=== PATIENT | female | born 1985 | race Caucasian/White ===

== ENCOUNTER 2016-05-21 10:25 | Emergency (ER) | payer OTHER ==
[2016-05-21 10:54] LABS: BASO % 0.5 % (0.0-1.0); EOS # 0.1 K/mm3 (0.0-0.50); EOS % 1.3 % (0.0-3.0); LARGE UNSTAINED CELL # 0.1 K/mm3 (0.0-0.4); LARGE UNSTAINED CELL % 1.7 % (0.0-4.0); LYMPH # 1.6 K/mm3 (1.5-6.5); LYMPH % 29.6 % (24.0-44.0); MEAN CORPUSCULAR HEMOGLOBIN 30.7 pg (27.0-33.0); MEAN CORPUSCULAR VOLUME 93.1 fl (80.0-96.0); MONO # 0.5 K/mm3 (0.0-0.8); MONO % 9.3 % (0.0-5.0); NEUTROPHILS # 3.1 K/mm3 (1.8-7.7); NEUTROPHILS % 57.7 % (36.0-66.0); PLATELET COUNT, AUTOMATED 287 k/mm3 (150-450); RED CELL DISTRIBUTION WIDTH 12.8 % (11.5-14.5); WHITE BLOOD COUNT 5.4 K/mm3 (4.0-10.0)
--- NOTE | 2016-05-21 11:08 | REP ---
Clinical: Epigastric and abdominal pain. Technique: Upright view of the chest with supine and upright views of the abdomen and pelvis. Findings: Frontal upright view of the chest demonstrates no acute cardiopulmonary process or free air below the diaphragm to suspect pneumoperitoneum. Supine and upright views of the abdomen and pelvis demonstrate nonspecific bowel gas pattern without obstruction or perforation. No organomegaly. No abnormal calcifications. Skeletal structures normal for age. Impression: Nonspecific bowel gas pattern. Signed by Diallo Calzada MD 05/21/2016 11:01 A
[2016-05-21 11:21] LABS: ALBUMIN 4.1 GM/DL (3.2-5.2); ALBUMIN/GLOBULIN RATIO 1.41 (1.00-1.93); ALKALINE PHOSPHATASE 80 U/L (45-117); ALT/SGPT 20 U/L (12-78); AMYLASE 22 U/L (25-115); ANION GAP 8 MEQ/L (8-16); AST/SGOT 10 U/L (15-37); BILIRUBIN,DIRECT < 0.1 MG/DL (0.0-0.2); BILIRUBIN,TOTAL 0.3 MG/DL (0.2-1.0); BLOOD UREA NITROGEN 10 MG/DL (7-18); CALCIUM LEVEL 8.7 MG/DL (8.5-10.1); CARBON DIOXIDE LEVEL 26 MEQ/L (21-32); CHLORIDE LEVEL 109 MEQ/L (98-107); CREATININE FOR GFR 0.79 MG/DL (0.55-1.02); GLOMERULAR FILTRATION RATE > 60.0 (>60); GLUCOSE, FASTING 95 MG/DL (70-105); POTASSIUM SERUM 4.4 MEQ/L (3.5-5.1); SODIUM LEVEL 143 MEQ/L (136-145)
[2016-05-21] MEDS ORDERED: GI COCKTAIL 50ML BTL(HYOSCYAMINE/MAALOX/LIDOCAINE VISCOUS)(1:3:1) As Ordered ONE (11:31)
--- NOTE | 2016-05-21 12:16 | REP ---
Clinical: Acute abdominal pain. Technique: Avila scale ultrasound using curved array transducer. Findings: The liver and pancreas are normal in contour, size, and echogenicity without focal hepatic or pancreatic lesions identified. The gallbladder is normal without gallstones, wall thickening or pericholecystic fluid. No biliary ductal dilatation is appreciated, and the common bile duct measures 2.3 mm diameter. The right kidney is normal in reniform shape without hydronephrosis and measures 11.2 x 7.0 x 4.1 cm. No ascites. Visualized portions of the abdominal aorta normal. Impression: Normal right upper quadrant and gallbladder abdominal ultrasound. Signed by Diallo Calzada MD 05/21/2016 12:08 P
--- NOTE | 2016-05-21 12:31 | EDDOCDS ---
Physician Documentation [facility] Name: Magalys Mcfarland Age: 30 yrs Sex: Female : 1985 Arrival Date: 05/21/2016 Time: 10:25 Bed PR Private MD: Frank Christian R. Disposition: 05/21/16 12:22 Discharged to Home/Self Care. Impression: Acute gastritis - NSAID induced. - Condition is Stable. - Discharge Instructions: Gastritis, Adult. - Prescriptions for Carafate 1 gram Oral Tablet - take 1 tablet by ORAL route 4 times per day take on an empty stomach, beginning on waking and last dose at bedtime; 28 tablet. - Medication Reconciliation, Local Pharmacy Hours form. - Follow up: Frank Christian; When: 1 week; Reason: Recheck today's complaints. Follow up: Emergency Department; When: As needed; Reason: Fever > 102F, Worsening of conditions, signs of bleeding. - Problem is new. - Symptoms have improved. - Notes: increase your omeprazole from once daily to twice daily for 7 days. call to arrange follow up appointment. Historical: - Allergies: No known drug Allergies; - Home Meds: 1. multivitamin Oral tab 1 tab daily 2. ferrous sulfate 325 mg (65 mg iron) Oral cpER daily 3. omeprazole 20 mg Oral cpDR 1 cap once daily - PMHx: none; - PSHx: Gastric Bypass; - Social history: Smoking status: Patient states was never smoker of tobacco. No barriers to communication noted, The patient speaks fluent Swazi, Speaks appropriately for age. - Family history: Not pertinent. - : The pt / caregiver states he / she is not on anticoagulants. Home medication list is obtained from the patient. - Exposure Risk Screening:: None identified. 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 3 in. (160.02 cm); 12:28 BP 127 / 76; Pulse 68; Resp 16; Temp 98.1(O); Pulse Ox 100% on R/A; Pain 0/10; mlb1 10:26 Body Mass Index 35.43 (90.72 kg, 160.02 cm) elp MDM: 10:42 NOTHING BY MOUTH+DIET ordered. EDMS 10:42 Amylase Ordered. EDMS 10:42 Basic Metabolic Profile Ordered. EDMS 10:42 CBC with Diff Ordered. EDMS 10:42 Lipase Ordered. EDMS 10:42 Liver Profile Ordered. EDMS 10:42 Abdomen, Flat\E\Upright,PA Chest Ordered. EDMS 10:50 Financial registration complete. mm15 11:05 [facility] Payment Agreement was scanned into [employer] and attached to record. mm15 11:16 CBC with Diff Reviewed. ar2 11:22 Amylase Reviewed. ar2 11:22 Basic Metabolic Profile Reviewed. ar2 11:22 Liver Profile Reviewed. ar2 11:22 Lipase Reviewed. ar2 11:28 GI Cocktail - (Alum-Mag Hydroxide-Simeth 30 ml, Lidocaine 10 ml, Hyoscyamine 10 ml) PO ar2 once; Pre-mixed 50mL unit dose ordered. 11:30 Gallbladder US Ordered. EDMS Administered Medications: 11:36 Drug: GI Cocktail - (Alum-Mag Hydroxide-Simeth Suspension 225 mg-200 mg-25 mg/5 mL 30 mcp ml, Lidocaine Liquid 2 % 10 ml, Hyoscyamine Liquid 10 ml) Route: PO; Signatures: Dispatcher [employer] EDVinod Tabares RN RN mlb1 Jessica IrvinRN RN ck1 Simon Salinas PA-C PACh[place] ar2 Vicki Alvarez mm15 Ela Hernandez RN [place] The chart was reviewed and I authenticate all verbal orders and agree with the evaluation and treatment provided.Attachments: 11:05 [facility] Payment Agreement mm15 MTDD
--- NOTE | 2016-05-21 12:31 | EDDOCDS ---
Nurse's Notes [facility] Name: Magalys Mcfarland Age: 30 yrs Sex: Female : 1985 Arrival Date: 05/21/2016 Time: 10:25 Bed PR2 / Private MD: Frank Christian R. Diagnosis: Acute gastritis-NSAID induced Presentation: 05/21 10:27 Presenting complaint: Patient states: "sever stomach pain " for a couple of hours. ck1 Denies NVD. Reports feeling lightheaded. Risk factors: the patient reports no vaginal bleeding. Adult Sepsis Screening: The patient does not have new or worsening altered mentation. Patient's respiratory rate is less than 22. Systolic blood pressure is greater than 100. Patient has a qSOFA score of 0- Negative Sepsis Screen. Suicide/Homicide risk assessment- the patient denies having any suicidal and/or homicidal ideations and does not present with any other emotional, behavioral or mental health complaints. Status: Patient is not a service operator or dependent. Transition of care: patient was not received from another setting of care. 10:27 Acuity: MARCY Level 3 ck1 10:27 Method Of Arrival: Walkin/Carried/Asstd ck1 Triage Assessment: 10:29 General: Appears uncomfortable, Behavior is appropriate for age, cooperative. Pain: ck1 Location: abdomen Pain At worst was 9 out of 10 on a pain scale. Is episodic. HIV screening NA for this visit Offered previously. GI: Denies diarrhea, nausea, vomiting. : Denies burning with urination, urinary frequency. Derm: Skin is pink, warm & dry. 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 multivitamin Oral tab 1 tab daily 2. ferrous sulfate 325 mg (65 mg iron) Oral cpER daily 3. omeprazole 20 mg Oral cpDR 1 cap once daily - PMHx: none; - PSHx: Gastric Bypass; - Social history: Smoking status: Patient states was never smoker of tobacco. No barriers to communication noted, The patient speaks fluent Cook Islander, Speaks appropriately for age. - Family history: Not pertinent. - : The pt / caregiver states he / she is not on anticoagulants. Home medication list is obtained from the patient. - Exposure Risk Screening:: None identified. Screenin:47 Screening information is obtained from the patient. Fall risk: No risks identified. ck1 Assistance ADL's: requires no assistance with activities of daily living. Abuse/DV Screen: The patient / caregiver reports he/she is: not in a situation that causes fear, pain or injury. Nutritional screening: No deficits noted. Advance Directives: Currently, there is no health care proxy. home support is adequate. Assessment: 10:47 General: Appears in no apparent distress, comfortable, Behavior is appropriate for age, ck1 cooperative. Pain: Location: abdomen Pain At worst was 8 out of 10 on a pain scale. GI: Abdomen is obese, Bowel sounds present X 4 quads. Abd is soft and non tender X 4 quads. Denies nausea, vomiting. : Denies burning with urination, urinary frequency, vaginal bleeding. Derm: Skin is pink, warm & dry. 12:28 General: Appears in no apparent distress, comfortable, Behavior is appropriate for age, mlb1 cooperative. Pain: Denies pain. Respiratory: No deficits noted. Derm: No deficits noted. 12:29 General: Appears in no apparent distress, comfortable, Behavior is appropriate for age, mlb1 cooperative. Vital Signs: 10:26 BP 137 / 89; Pulse 85; Resp 18; Temp 98.9; Pulse Ox 100% ; Weight 90.72 kg; Height 5 elp ft. 3 in. (160.02 cm); 12:28 BP 127 / 76; Pulse 68; Resp 16; Temp 98.1(O); Pulse Ox 100% on R/A; Pain 0/10; mlb1 10:26 Body Mass Index 35.43 (90.72 kg, 160.02 cm) [facility] Vitals: 10:26 Log In Time: May 21, 2016 at 10:24. [facility] ED Course: 10:26 Patient visited by Veronica Figueroa PCA. elp 10:26 Frank Christian is Private Physician. elp 10:26 Patient visited by Veronica Figueroa PCA. elp 10:26 Patient moved to Waiting elp 10:27 Patient moved to Pre RCE elp 10:28 Triage Initiated ck1 10:30 Patient moved to Triage 3 ck1 10:34 [facility] ar2 10:34 Patience Hidalgo MD is Attending Physician. ar2 10:34 Patient visited by Simon Salinas PA-C. ar2 10:46 Amylase Sent. nb2 10:46 Basic Metabolic Profile Sent. nb2 10:46 CBC with Diff Sent. nb2 10:46 Lipase Sent. nb2 10:46 Liver Profile Sent. nb2 10:47 Patient visited by Jessica Irvin,MEREDITH. ck1 10:47 Patient moved to TR3 ck1 10:47 The patient / caregiver is instructed regarding the plan of care and ED course. ck1 10:57 Patient moved to TR1 ck1 11:05 [facility] Payment Agreement was scanned into [employer] and attached to record. mm15 11:17 Patient moved to PR2 / 26 mlb1 11:37 Abdomen, Flat\\E\\Upright,PA Chest Returned. EDMS 11:46 Patient moved to Ultrasound eg2 11:57 Patient moved to PR2 / eg2 11:58 Patient visited by Jessica Irvin,MEREDITH. ck1 12:21 Frank Christian is Referral Physician. ar2 12:23 Gallbladder US Returned. EDMS 12:29 No IV's were initiated during this patient's visit. No procedures done that require mlb1 assistance. 12:30 Patient visited by Vinod Duarte RN. mlb1 Administered Medications: 11:36 Drug: GI Cocktail - (Alum-Mag Hydroxide-Simeth Suspension 225 mg-200 mg-25 mg/5 mL 30 mcp ml, Lidocaine Liquid 2 % 10 ml, Hyoscyamine Liquid 10 ml) Route: PO; Order Results: Lab Order: Amylase; SPEC'M 05/21/16 10:45 Test: AMYLASE; Value: 22; Range: 25-115; Abnormal: Below low normal; Units: U/L; Status: F Lab Order: Basic Metabolic Profile; SPEC'M 05/21/16 10:45 Test: GLUCOSE, FASTING; Value: 95; Range: 70-105; Units: MG/DL; Status: F Test: BLOOD UREA NITROGEN; Value: 10; Range: 7-18; Units: MG/DL; Status: F Test: CREATININE FOR GFR; Value: 0.79; Range: 0.55-1.02; Units: MG/DL; Status: F Test: GLOMERULAR FILTRATION RATE; Value: > 60.0; Range: >60; Status: F Test: SODIUM LEVEL; Value: 143; Range: 136-145; Units: MEQ/L; Status: F Test: POTASSIUM SERUM; Value: 4.4; Range: 3.5-5.1; Units: MEQ/L; Status: F Test: CHLORIDE LEVEL; Value: 109; Range: 98-107; Abnormal: Above high normal; Units: MEQ/L; Status: F Test: CARBON DIOXIDE LEVEL; Value: 26; Range: 21-32; Units: MEQ/L; Status: F Test: ANION GAP; Value: 8; Range: 8-16; Units: MEQ/L; Status: F Test: CALCIUM LEVEL; Value: 8.7; Range: 8.5-10.1; Units: MG/DL; Status: F Test Note: ; Units are mL/min/1.73 m2 Chronic Kidney Disease Staging per NKF: Stage I & II GFR >=60 Normal to Mildly Decreased Stage III GFR 30-59 Moderately Decreased Stage IV GFR 15-29 Severely Decreased Stage V GFR <15 Very Little GFR Left ESRD GFR <15 on METAL SLITTER Lab Order: CBC with Diff; SPEC'M 05/21/16 10:45 Test: WHITE BLOOD COUNT; Value: 5.4; Range: 4.0-10.0; Units: K/mm3; Status: F Test: RED BLOOD COUNT; Value: 4.52; Range: 4.00-5.40; Units: M/mm3; Status: F Test: HEMOGLOBIN; Value: 13.9; Range: 12.0-16.0; Units: g/dl; Status: F Test: HEMATOCRIT; Value: 42.1; Range: 36.0-47.0; Units: %; Status: F Test: MEAN CORPUSCULAR VOLUME; Value: 93.1; Range: 80.0-96.0; Units: fl; Status: F Test: MEAN CORPUSCULAR HEMOGLOBIN; Value: 30.7; Range: 27.0-33.0; Units: pg; Status: F Test: MEAN CORPUSCULAR HGB CONC; Value: 33.0; Range: 32.0-36.5; Units: g/dl; Status: F Test: RED CELL DISTRIBUTION WIDTH; Value: 12.8; Range: 11.5-14.5; Units: %; Status: F Test: PLATELET COUNT, AUTOMATED; Value: 287; Range: 150-450; Units: k/mm3; Status: F Test: NEUTROPHILS %; Value: 57.7; Range: 36.0-66.0; Units: %; Status: F Test: LYMPH %; Value: 29.6; Range: 24.0-44.0; Units: %; Status: F Test: MONO %; Value: 9.3; Range: 0.0-5.0; Abnormal: Above high normal; Units: %; Status: F Test: EOS %; Value: 1.3; Range: 0.0-3.0; Units: %; Status: F Test: BASO %; Value: 0.5; Range: 0.0-1.0; Units: %; Status: F Test: LARGE UNSTAINED CELL %; Value: 1.7; Range: 0.0-4.0; Units: %; Status: F Test: NEUTROPHILS #; Value: 3.1; Range: 1.8-7.7; Units: K/mm3; Status: F Test: LYMPH #; Value: 1.6; Range: 1.5-6.5; Units: K/mm3; Status: F Test: MONO #; Value: 0.5; Range: 0.0-0.8; Units: K/mm3; Status: F Test: EOS #; Value: 0.1; Range: 0.0-0.50; Units: K/mm3; Status: F Test: BASO #; Value: 0.0; Range: 0.0-0.2; Units: K/mm3; Status: F Test: LARGE UNSTAINED CELL #; Value: 0.1; Range: 0.0-0.4; Units: K/mm3; Status: F Lab Order: Lipase; SPEC'M 05/21/16 10:45 Test: LIPASE; Value: 122; Range: 73-393; Units: U/L; Status: F Lab Order: Liver Profile; SPEC'M 05/21/16 10:45 Test: AST/SGOT; Value: 10; Range: 15-37; Abnormal: Below low normal; Units: U/L; Status: F Test: ALT/SGPT; Value: 20; Range: 12-78; Units: U/L; Status: F Test: ALKALINE PHOSPHATASE; Value: 80; Range: 45-117; Units: U/L; Status: F Test: BILIRUBIN,TOTAL; Value: 0.3; Range: 0.2-1.0; Units: MG/DL; Status: F Test: BILIRUBIN,DIRECT; Value: < 0.1; Range: 0.0-0.2; Units: MG/DL; Status: F Test: TOTAL PROTEIN; Value: 7.0; Range: 6.4-8.2; Units: GM/DL; Status: F Test: ALBUMIN; Value: 4.1; Range: 3.2-5.2; Units: GM/DL; Status: F Test: ALBUMIN/GLOBULIN RATIO; Value: 1.41; Range: 1.00-1.93; Status: F Radiology Order: Abdomen, Flat\\E\\Upright,PA Chest Test: Abdomen, Flat\\E\\Upright,PA Chest REASON FOR EXAMINATION: epigastric pain; Clinical: Epigastric and abdominal pain.; ; Technique: Upright view of the chest with supine and upright views of the; abdomen and pelvis.; ; Findings: Frontal upright view of the chest demonstrates no acute; cardiopulmonary process or free air below the diaphragm to suspect; pneumoperitoneum. Supine and upright views of the abdomen and pelvis demonstrate; nonspecific bowel gas pattern without obstruction or perforation. No; organomegaly. No abnormal calcifications. Skeletal structures normal for age.; ; Impression:; Nonspecific bowel gas pattern.; ; ; Signed by; Diallo Calzada MD 05/21/2016 11:01 A; Radiology Order: Gallbladder US Test: Gallbladder US REASON FOR EXAMINATION: epigastric pain/colic; Clinical: Acute abdominal pain.; ; Technique: Avila scale ultrasound using curved array transducer.; ; Findings: The liver and pancreas are normal in contour, size, and echogenicity; without focal hepatic or pancreatic lesions identified. The gallbladder is; normal without gallstones, wall thickening or pericholecystic fluid. No biliary; ductal dilatation is appreciated, and the common bile duct measures 2.3 mm; diameter. The right kidney is normal in reniform shape without hydronephrosis; and measures 11.2 x 7.0 x 4.1 cm. No ascites. Visualized portions of the; abdominal aorta normal.; ; Impression:; Normal right upper quadrant and gallbladder abdominal ultrasound.; ; ; Signed by; Diallo Calzada MD 05/21/2016 12:08 P; Outcome: 12:22 Discharge ordered by Provider. ar2 12:29 Discharge Assessment: Patient awake, alert and oriented x 3. No cognitive and/or mlb1 functional deficits noted. Patient verbalized understanding of disposition instructions. patient administered narcotics - no. The following High Risk Discharge criteria are identified: None. Discharged to home ambulatory, with significant other. Condition: good. Discharge instructions given to patient, Instructed on discharge instructions, follow up and referral plans. Demonstrated understanding of instructions, medications, Pt was receptive of discharge instructions/ teaching. Prescriptions given X 1. Ultrasound Study completed. Property sent home with patient. 12:30 Patient left the ED. mlb1 Signatures: Dispatcher [employer] EDMS Ela Hernandez, RN RN Vinod Carrera RN RN mlb1 Jessica Irvin RN RN ck1 Veronica Quigley eg2 Simon Salinas PA-C PAChico ar2 Vicki Alvarez mm15 Veronica Figueroa PCA PCA elp Baart, Nicole nb2 [employer]
--- NOTE | 2016-05-23 13:30 | EDDOCDS ---
Physician Documentation [facility] Name: Magalys Mcfarland Age: 30 yrs Sex: Female : 1985 Arrival Date: 05/21/2016 Time: 10:25 Bed PR Private MD: Frank Christian R. Disposition: 05/21/16 12:22 Discharged to Home/Self Care. Impression: Acute gastritis - NSAID induced. - Condition is Stable. - Discharge Instructions: Gastritis, Adult. - Prescriptions for Carafate 1 gram Oral Tablet - take 1 tablet by ORAL route 4 times per day take on an empty stomach, beginning on waking and last dose at bedtime; 28 tablet. - Medication Reconciliation, Local Pharmacy Hours form. - Follow up: Frank Christian; When: 1 week; Reason: Recheck today's complaints. Follow up: Emergency Department; When: As needed; Reason: Fever > 102F, Worsening of conditions, signs of bleeding. - Problem is new. - Symptoms have improved. - Notes: increase your omeprazole from once daily to twice daily for 7 days. call to arrange follow up appointment. Historical: - Allergies: No known drug Allergies; - Home Meds: 1. multivitamin Oral tab 1 tab daily 2. ferrous sulfate 325 mg (65 mg iron) Oral cpER daily 3. omeprazole 20 mg Oral cpDR 1 cap once daily - PMHx: none; - PSHx: Gastric Bypass; - Social history: Smoking status: Patient states was never smoker of tobacco. No barriers to communication noted, The patient speaks fluent Beninese, Speaks appropriately for age. - Family history: Not pertinent. - : The pt / caregiver states he / she is not on anticoagulants. Home medication list is obtained from the patient. - Exposure Risk Screening:: None identified. 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 3 in. (160.02 cm); 12:28 BP 127 / 76; Pulse 68; Resp 16; Temp 98.1(O); Pulse Ox 100% on R/A; Pain 0/10; mlb1 10:26 Body Mass Index 35.43 (90.72 kg, 160.02 cm) elp MDM: 10:42 NOTHING BY MOUTH+DIET ordered. EDMS 10:42 Amylase Ordered. EDMS 10:42 Basic Metabolic Profile Ordered. EDMS 10:42 CBC with Diff Ordered. EDMS 10:42 Lipase Ordered. EDMS 10:42 Liver Profile Ordered. EDMS 10:42 Abdomen, Flat\E\Upright,PA Chest Ordered. EDMS 10:50 Financial registration complete. mm15 11:05 [facility] Payment Agreement was scanned into [employer] and attached to record. mm15 11:16 CBC with Diff Reviewed. ar2 11:22 Amylase Reviewed. ar2 11:22 Basic Metabolic Profile Reviewed. ar2 11:22 Liver Profile Reviewed. ar2 11:22 Lipase Reviewed. ar2 11:28 GI Cocktail - (Alum-Mag Hydroxide-Simeth 30 ml, Lidocaine 10 ml, Hyoscyamine 10 ml) PO ar2 once; Pre-mixed 50mL unit dose ordered. 11:30 Gallbladder US Ordered. EDWI 05/23 08:23 T-Sheet-- Draft Copy was scanned into [employer] and attached to record. lg 08:23 Radiology Report was scanned into [employer] and attached to record. lg Administered Medications: 05/21 11:36 Drug: GI Cocktail - (Alum-Mag Hydroxide-Simeth Suspension 225 mg-200 mg-25 mg/5 mL 30 mcp ml, Lidocaine Liquid 2 % 10 ml, Hyoscyamine Liquid 10 ml) Route: PO; Signatures: Dispatcher [employer] EDWI Franc Driscoll, Reg Reg lg Vinod Duarte RN RN mlb1 Jessica Irvin RN RN ck1 Simon Salinas PA-C PA-C ar2 Vicki Alvarez mm15 Ela Hernandez RN [facility] The chart was reviewed and I authenticate all verbal orders and agree with the evaluation and treatment provided.Attachments: 11:05 [facility] Payment Agreement mm15 05/23 08:23 T-Sheet-- Draft Copy lg Chart Complete MTDD
--- NOTE | 2016-05-23 13:30 | EDDOCDS ---
Nurse's Notes [facility] Name: Magalys Mcfarland Age: 30 yrs Sex: Female : 1985 Arrival Date: 05/21/2016 Time: 10:25 Bed PR2 / Private MD: Frank Christian R. Diagnosis: Acute gastritis-NSAID induced Presentation: 05/21 10:27 Presenting complaint: Patient states: "sever stomach pain " for a couple of hours. ck1 Denies NVD. Reports feeling lightheaded. Risk factors: the patient reports no vaginal bleeding. Adult Sepsis Screening: The patient does not have new or worsening altered mentation. Patient's respiratory rate is less than 22. Systolic blood pressure is greater than 100. Patient has a qSOFA score of 0- Negative Sepsis Screen. Suicide/Homicide risk assessment- the patient denies having any suicidal and/or homicidal ideations and does not present with any other emotional, behavioral or mental health complaints. Status: Patient is not a director of physiotherapy services or dependent. Transition of care: patient was not received from another setting of care. 10:27 Acuity: MARCY Level 3 ck1 10:27 Method Of Arrival: Walkin/Carried/Asstd ck1 Triage Assessment: 10:29 General: Appears uncomfortable, Behavior is appropriate for age, cooperative. Pain: ck1 Location: abdomen Pain At worst was 9 out of 10 on a pain scale. Is episodic. HIV screening NA for this visit Offered previously. GI: Denies diarrhea, nausea, vomiting. : Denies burning with urination, urinary frequency. Derm: Skin is pink, warm & dry. OTOLARYNGOLOGY NURSE: 10:30 LMP 05/16/2016 ck1 Historical: - Allergies: No known drug Allergies; - Home Meds: 1. multivitamin Oral tab 1 tab daily 2. ferrous sulfate 325 mg (65 mg iron) Oral cpER daily 3. omeprazole 20 mg Oral cpDR 1 cap once daily - PMHx: none; - PSHx: Gastric Bypass; - Social history: Smoking status: Patient states was never smoker of tobacco. No barriers to communication noted, The patient speaks fluent Qatari, Speaks appropriately for age. - Family history: Not pertinent. - : The pt / caregiver states he / she is not on anticoagulants. Home medication list is obtained from the patient. - Exposure Risk Screening:: None identified. Screenin:47 Screening information is obtained from the patient. Fall risk: No risks identified. ck1 Assistance ADL's: requires no assistance with activities of daily living. Abuse/DV Screen: The patient / caregiver reports he/she is: not in a situation that causes fear, pain or injury. Nutritional screening: No deficits noted. Advance Directives: Currently, there is no health care proxy. home support is adequate. Assessment: 10:47 General: Appears in no apparent distress, comfortable, Behavior is appropriate for age, ck1 cooperative. Pain: Location: abdomen Pain At worst was 8 out of 10 on a pain scale. GI: Abdomen is obese, Bowel sounds present X 4 quads. Abd is soft and non tender X 4 quads. Denies nausea, vomiting. : Denies burning with urination, urinary frequency, vaginal bleeding. Derm: Skin is pink, warm & dry. 12:28 General: Appears in no apparent distress, comfortable, Behavior is appropriate for age, mlb1 cooperative. Pain: Denies pain. Respiratory: No deficits noted. Derm: No deficits noted. 12:29 General: Appears in no apparent distress, comfortable, Behavior is appropriate for age, mlb1 cooperative. Vital Signs: 10:26 BP 137 / 89; Pulse 85; Resp 18; Temp 98.9; Pulse Ox 100% ; Weight 90.72 kg; Height 5 elp ft. 3 in. (160.02 cm); 12:28 BP 127 / 76; Pulse 68; Resp 16; Temp 98.1(O); Pulse Ox 100% on R/A; Pain 0/10; mlb1 10:26 Body Mass Index 35.43 (90.72 kg, 160.02 cm) [facility] Vitals: 10:26 Log In Time: May 21, 2016 at 10:24. [facility] ED Course: 10:26 Patient visited by Veronica Figueroa PCA. elp 10:26 Frank Christian is Private Physician. elp 10:26 Patient visited by Veronica Figueroa PCA. elp 10:26 Patient moved to Waiting elp 10:27 Patient moved to Pre RCE elp 10:28 Triage Initiated ck1 10:30 Patient moved to Triage 3 ck1 10:34 [facility] ar2 10:34 Patience Hidalgo MD is Attending Physician. ar2 10:34 Patient visited by Simon Salinas PA-C. ar2 10:46 Amylase Sent. nb2 10:46 Basic Metabolic Profile Sent. nb2 10:46 CBC with Diff Sent. nb2 10:46 Lipase Sent. nb2 10:46 Liver Profile Sent. nb2 10:47 Patient visited by Jessica Irvin,MEREDITH. ck1 10:47 Patient moved to TR3 ck1 10:47 The patient / caregiver is instructed regarding the plan of care and ED course. ck1 10:57 Patient moved to TR1 ck1 11:05 [facility] Payment Agreement was scanned into [employer] and attached to record. mm15 11:17 Patient moved to PR2 / mlb1 11:37 Abdomen, Flat\\E\\Upright,PA Chest Returned. EDMS 11:46 Patient moved to Ultrasound eg2 11:57 Patient moved to PR / eg2 11:58 Patient visited by Jessica Irvin,MEREDITH. ck1 12:21 Frank Christian is Referral Physician. ar2 12:23 Gallbladder US Returned. EDMS 12:29 No IV's were initiated during this patient's visit. No procedures done that require mlb1 assistance. 12:30 Patient visited by Vinod Duarte RN. mlb1 05/23 08:23 T-Sheet-- Draft Copy was scanned into [employer] and attached to record. lg 08:23 Radiology Report was scanned into [employer] and attached to record. lg Administered Medications: 05/21 11:36 Drug: GI Cocktail - (Alum-Mag Hydroxide-Simeth Suspension 225 mg-200 mg-25 mg/5 mL 30 mcp ml, Lidocaine Liquid 2 % 10 ml, Hyoscyamine Liquid 10 ml) Route: PO; Order Results: Lab Order: Amylase; SPEC'M 05/21/16 10:45 Test: AMYLASE; Value: 22; Range: 25-115; Abnormal: Below low normal; Units: U/L; Status: F Lab Order: Basic Metabolic Profile; SPEC'M 05/21/16 10:45 Test: GLUCOSE, FASTING; Value: 95; Range: 70-105; Units: MG/DL; Status: F Test: BLOOD UREA NITROGEN; Value: 10; Range: 7-18; Units: MG/DL; Status: F Test: CREATININE FOR GFR; Value: 0.79; Range: 0.55-1.02; Units: MG/DL; Status: F Test: GLOMERULAR FILTRATION RATE; Value: > 60.0; Range: >60; Status: F Test: SODIUM LEVEL; Value: 143; Range: 136-145; Units: MEQ/L; Status: F Test: POTASSIUM SERUM; Value: 4.4; Range: 3.5-5.1; Units: MEQ/L; Status: F Test: CHLORIDE LEVEL; Value: 109; Range: 98-107; Abnormal: Above high normal; Units: MEQ/L; Status: F Test: CARBON DIOXIDE LEVEL; Value: 26; Range: 21-32; Units: MEQ/L; Status: F Test: ANION GAP; Value: 8; Range: 8-16; Units: MEQ/L; Status: F Test: CALCIUM LEVEL; Value: 8.7; Range: 8.5-10.1; Units: MG/DL; Status: F Test Note: ; Units are mL/min/1.73 m2 Chronic Kidney Disease Staging per NKF: Stage I & II GFR >=60 Normal to Mildly Decreased Stage III GFR 30-59 Moderately Decreased Stage IV GFR 15-29 Severely Decreased Stage V GFR <15 Very Little GFR Left ESRD GFR <15 on CLINICAL TRIAL ASSOCIATE Lab Order: CBC with Diff; SPEC'M 05/21/16 10:45 Test: WHITE BLOOD COUNT; Value: 5.4; Range: 4.0-10.0; Units: K/mm3; Status: F Test: RED BLOOD COUNT; Value: 4.52; Range: 4.00-5.40; Units: M/mm3; Status: F Test: HEMOGLOBIN; Value: 13.9; Range: 12.0-16.0; Units: g/dl; Status: F Test: HEMATOCRIT; Value: 42.1; Range: 36.0-47.0; Units: %; Status: F Test: MEAN CORPUSCULAR VOLUME; Value: 93.1; Range: 80.0-96.0; Units: fl; Status: F Test: MEAN CORPUSCULAR HEMOGLOBIN; Value: 30.7; Range: 27.0-33.0; Units: pg; Status: F Test: MEAN CORPUSCULAR HGB CONC; Value: 33.0; Range: 32.0-36.5; Units: g/dl; Status: F Test: RED CELL DISTRIBUTION WIDTH; Value: 12.8; Range: 11.5-14.5; Units: %; Status: F Test: PLATELET COUNT, AUTOMATED; Value: 287; Range: 150-450; Units: k/mm3; Status: F Test: NEUTROPHILS %; Value: 57.7; Range: 36.0-66.0; Units: %; Status: F Test: LYMPH %; Value: 29.6; Range: 24.0-44.0; Units: %; Status: F Test: MONO %; Value: 9.3; Range: 0.0-5.0; Abnormal: Above high normal; Units: %; Status: F Test: EOS %; Value: 1.3; Range: 0.0-3.0; Units: %; Status: F Test: BASO %; Value: 0.5; Range: 0.0-1.0; Units: %; Status: F Test: LARGE UNSTAINED CELL %; Value: 1.7; Range: 0.0-4.0; Units: %; Status: F Test: NEUTROPHILS #; Value: 3.1; Range: 1.8-7.7; Units: K/mm3; Status: F Test: LYMPH #; Value: 1.6; Range: 1.5-6.5; Units: K/mm3; Status: F Test: MONO #; Value: 0.5; Range: 0.0-0.8; Units: K/mm3; Status: F Test: EOS #; Value: 0.1; Range: 0.0-0.50; Units: K/mm3; Status: F Test: BASO #; Value: 0.0; Range: 0.0-0.2; Units: K/mm3; Status: F Test: LARGE UNSTAINED CELL #; Value: 0.1; Range: 0.0-0.4; Units: K/mm3; Status: F Lab Order: Lipase; SPEC'M 05/21/16 10:45 Test: LIPASE; Value: 122; Range: 73-393; Units: U/L; Status: F Lab Order: Liver Profile; SPEC'M 02/22/17 10:45 Test: AST/SGOT; Value: 10; Range: 15-37; Abnormal: Below low normal; Units: U/L; Status: F Test: ALT/SGPT; Value: 20; Range: 12-78; Units: U/L; Status: F Test: ALKALINE PHOSPHATASE; Value: 80; Range: 45-117; Units: U/L; Status: F Test: BILIRUBIN,TOTAL; Value: 0.3; Range: 0.2-1.0; Units: MG/DL; Status: F Test: BILIRUBIN,DIRECT; Value: < 0.1; Range: 0.0-0.2; Units: MG/DL; Status: F Test: TOTAL PROTEIN; Value: 7.0; Range: 6.4-8.2; Units: GM/DL; Status: F Test: ALBUMIN; Value: 4.1; Range: 3.2-5.2; Units: GM/DL; Status: F Test: ALBUMIN/GLOBULIN RATIO; Value: 1.41; Range: 1.00-1.93; Status: F Radiology Order: Abdomen, Flat\\E\\Upright,PA Chest Test: Abdomen, Flat\\E\\Upright,PA Chest REASON FOR EXAMINATION: epigastric pain; Clinical: Epigastric and abdominal pain.; ; Technique: Upright view of the chest with supine and upright views of the; abdomen and pelvis.; ; Findings: Frontal upright view of the chest demonstrates no acute; cardiopulmonary process or free air below the diaphragm to suspect; pneumoperitoneum. Supine and upright views of the abdomen and pelvis demonstrate; nonspecific bowel gas pattern without obstruction or perforation. No; organomegaly. No abnormal calcifications. Skeletal structures normal for age.; ; Impression:; Nonspecific bowel gas pattern.; ; ; Signed by; Diallo Calzada MD 05/21/2016 11:01 A; Radiology Order: Gallbladder US Test: Gallbladder US REASON FOR EXAMINATION: epigastric pain/colic; Clinical: Acute abdominal pain.; ; Technique: Avila scale ultrasound using curved array transducer.; ; Findings: The liver and pancreas are normal in contour, size, and echogenicity; without focal hepatic or pancreatic lesions identified. The gallbladder is; normal without gallstones, wall thickening or pericholecystic fluid. No biliary; ductal dilatation is appreciated, and the common bile duct measures 2.3 mm; diameter. The right kidney is normal in reniform shape without hydronephrosis; and measures 11.2 x 7.0 x 4.1 cm. No ascites. Visualized portions of the; abdominal aorta normal.; ; Impression:; Normal right upper quadrant and gallbladder abdominal ultrasound.; ; ; Signed by; Diallo Calzada MD 05/21/2016 12:08 P; Outcome: 12:22 Discharge ordered by Provider. ar2 12:29 Discharge Assessment: Patient awake, alert and oriented x 3. No cognitive and/or mlb1 functional deficits noted. Patient verbalized understanding of disposition instructions. patient administered narcotics - no. The following High Risk Discharge criteria are identified: None. Discharged to home ambulatory, with significant other. Condition: good. Discharge instructions given to patient, Instructed on discharge instructions, follow up and referral plans. Demonstrated understanding of instructions, medications, Pt was receptive of discharge instructions/ teaching. Prescriptions given X 1. Ultrasound Study completed. Property sent home with patient. 12:30 Patient left the ED. mlb1 Signatures: Dispatcher [employer] EDMS Ela Hernandez, RN RN Franc Stewart Reg Reg lg Barney, Michael B RN RN mlb1 Jessica Irvin RN RN ck1 Veronica Quigley eg2 Simon Salinas PA-C PACh[place] ar2 Vicki Alvarez mm15 Veronica Figueroa PCA PCA elp Baart, Nicole nb2 Chart Complete MTDD
--- NOTE | 2016-05-23 13:30 | EDDOCDS ---
Physician Documentation [facility] Name: Magalys Mcfarland Age: 30 yrs Sex: Female : 1985 Arrival Date: 05/21/2016 Time: 10:25 Bed PR Private MD: Frank Christian R. Disposition: 05/21/16 12:22 Discharged to Home/Self Care. Impression: Acute gastritis - NSAID induced. - Condition is Stable. - Discharge Instructions: Gastritis, Adult. - Prescriptions for Carafate 1 gram Oral Tablet - take 1 tablet by ORAL route 4 times per day take on an empty stomach, beginning on waking and last dose at bedtime; 28 tablet. - Medication Reconciliation, Local Pharmacy Hours form. - Follow up: Frank Christian; When: 1 week; Reason: Recheck today's complaints. Follow up: Emergency Department; When: As needed; Reason: Fever > 102F, Worsening of conditions, signs of bleeding. - Problem is new. - Symptoms have improved. - Notes: increase your omeprazole from once daily to twice daily for 7 days. call to arrange follow up appointment. Historical: - Allergies: No known drug Allergies; - Home Meds: 1. multivitamin Oral tab 1 tab daily 2. ferrous sulfate 325 mg (65 mg iron) Oral cpER daily 3. omeprazole 20 mg Oral cpDR 1 cap once daily - PMHx: none; - PSHx: Gastric Bypass; - Social history: Smoking status: Patient states was never smoker of tobacco. No barriers to communication noted, The patient speaks fluent Senegalese, Speaks appropriately for age. - Family history: Not pertinent. - : The pt / caregiver states he / she is not on anticoagulants. Home medication list is obtained from the patient. - Exposure Risk Screening:: None identified. DIRECTOR OF PULMONARY UNIT: 05/21 10:30 LMP 05/16/2016 ck1 Vital Signs: 10:26 BP 137 / 89; Pulse 85; Resp 18; Temp 98.9; Pulse Ox 100% ; Weight 90.72 kg / 200 lbs; elp Height 5 ft. 3 in. (160.02 cm); 12:28 BP 127 / 76; Pulse 68; Resp 16; Temp 98.1(O); Pulse Ox 100% on R/A; Pain 0/10; mlb1 10:26 Body Mass Index 35.43 (90.72 kg, 160.02 cm) elp MDM: 10:42 NOTHING BY MOUTH+DIET ordered. EDMS 10:42 Amylase Ordered. EDMS 10:42 Basic Metabolic Profile Ordered. EDMS 10:42 CBC with Diff Ordered. EDMS 10:42 Lipase Ordered. EDMS 10:42 Liver Profile Ordered. EDMS 10:42 Abdomen, Flat\E\Upright,PA Chest Ordered. EDMS 10:50 Financial registration complete. mm15 11:05 [facility] Payment Agreement was scanned into [employer] and attached to record. mm15 11:16 CBC with Diff Reviewed. ar2 11:22 Amylase Reviewed. ar2 11:22 Basic Metabolic Profile Reviewed. ar2 11:22 Liver Profile Reviewed. ar2 11:22 Lipase Reviewed. ar2 11:28 GI Cocktail - (Alum-Mag Hydroxide-Simeth 30 ml, Lidocaine 10 ml, Hyoscyamine 10 ml) PO ar2 once; Pre-mixed 50mL unit dose ordered. 11:30 Gallbladder US Ordered. EDWY 05/23 08:23 T-Sheet-- Draft Copy was scanned into [employer] and attached to record. lg 08:23 Radiology Report was scanned into [employer] and attached to record. lg Administered Medications: 05/21 11:36 Drug: GI Cocktail - (Alum-Mag Hydroxide-Simeth Suspension 225 mg-200 mg-25 mg/5 mL 30 mcp ml, Lidocaine Liquid 2 % 10 ml, Hyoscyamine Liquid 10 ml) Route: PO; Signatures: Dispatcher [employer] EDWY Franc Driscoll, Reg Reg lg Vinod Duarte RN RN mlb1 Jessica Irvin RN RN ck1 Simon Salinas PA-C PA-C ar2 Vicki Alvarez mm15 Ela Hernandez RN [facility] The chart was reviewed and I authenticate all verbal orders and agree with the evaluation and treatment provided.Attachments: 11:05 [facility] Payment Agreement mm15 05/23 08:23 T-Sheet-- Draft Copy lg Chart Complete MTDD
== END 2016-05-21 12:30 | disposition home or self-care (01) ==
LOC: M ED 10:25
DX: K29.70 Gastritis, unspecified, without bleeding (principal); Z98.84 Bariatric surgery status; Z79.899 Other long term (current) drug therapy

== ENCOUNTER → 2016-07-04 | Outpatient (CLI) | payer OTHER ==
[2016-07-04 14:22] LABS: MEAN CORPUSCULAR HEMOGLOBIN 30.9 pg (27.0-33.0); MEAN CORPUSCULAR HGB CONC 32.8 g/dl (32.0-36.5); MEAN CORPUSCULAR VOLUME 94.2 fl (80.0-96.0); RED CELL DISTRIBUTION WIDTH 12.8 % (11.5-14.5); WHITE BLOOD COUNT 5.7 K/mm3 (4.0-10.0)
[2016-07-04 14:40] LABS: VITAMIN B12 LEVEL 469 PG/ML (247-911)
[2016-07-04 14:45] LABS: ALBUMIN 4.1 GM/DL (3.2-5.2); ALBUMIN/GLOBULIN RATIO 1.37 (1.00-1.93); ALKALINE PHOSPHATASE 80 U/L (45-117); ALT/SGPT 21 U/L (12-78); ANION GAP 7 MEQ/L (8-16); AST/SGOT 10 U/L (15-37); BILIRUBIN,TOTAL 0.5 MG/DL (0.2-1.0); BLOOD UREA NITROGEN 9 MG/DL (7-18); CALCIUM LEVEL 9.6 MG/DL (8.5-10.1); CARBON DIOXIDE LEVEL 27 MEQ/L (21-32); CHLORIDE LEVEL 107 MEQ/L (98-107); CHOLESTEROL LEVEL 126 MG/DL (<200); GLOMERULAR FILTRATION RATE > 60.0 (>60); GLUCOSE, FASTING 84 MG/DL (70-105); PERCENT SATURATION 33.3 % (13.2-37.4); POTASSIUM SERUM 4.5 MEQ/L (3.5-5.1); SODIUM LEVEL 141 MEQ/L (136-145); TOTAL IRON BINDING CAPACITY 333 UG/DL (250-450); TOTAL PROTEIN 7.1 GM/DL (6.4-8.2); TRIGLYCERIDES LEVEL 41 MG/DL (<150)
== END ==
LOC: M LRY 07:41
PROVIDERS: ATTEND Surgery
DX: E66.01 Morbid (severe) obesity due to excess calories (principal)

== ENCOUNTER → 2016-07-22 | Outpatient (REF) | payer OTHER | LOC: M SFHCLERA 15:38 | PROVIDERS: ATTEND Physician Assistant | DX: N39.0 Urinary tract infection, site not specified (principal) ==

== ENCOUNTER → 2017-05-05 | Outpatient (REF) | payer OTHER ==
[2017-05-05 17:44] LABS: HEMATOCRIT 39.6 % (36.0-47.0); HEMOGLOBIN 12.8 g/dl (12.0-16.0); MEAN CORPUSCULAR HEMOGLOBIN 29.2 pg (27.0-33.0); MEAN CORPUSCULAR HGB CONC 32.3 g/dl (32.0-36.5); MEAN CORPUSCULAR VOLUME 90.4 fl (80.0-96.0); PLATELET COUNT, AUTOMATED 234 10^3/uL (150-450); RED BLOOD COUNT 4.38 10^6/uL (4.00-5.40); RED CELL DISTRIBUTION WIDTH 12.8 % (11.5-14.5); WHITE BLOOD COUNT 7.4 10^3/uL (4.0-10.0)
[2017-05-05 18:07] LABS: ALBUMIN 4.2 GM/DL (3.2-5.2); ALKALINE PHOSPHATASE 80 U/L (45-117); ALT/SGPT 23 U/L (12-78); ANION GAP 7 MEQ/L (8-16); AST/SGOT 13 U/L (7-37); BILIRUBIN,TOTAL 0.3 MG/DL (0.2-1.0); BLOOD UREA NITROGEN 8 MG/DL (7-18); CALCIUM LEVEL 8.6 MG/DL (8.5-10.1); CARBON DIOXIDE LEVEL 26 MEQ/L (21-32); CHLORIDE LEVEL 107 MEQ/L (98-107); CREATININE FOR GFR 0.72 MG/DL (0.55-1.30); FERRITIN 18 NG/ML (8-252); GLOMERULAR FILTRATION RATE > 60.0 (>60); GLUCOSE, FASTING 80 MG/DL (70-100); IRON (FE) 97 UG/DL (50-170); POTASSIUM SERUM 4.6 MEQ/L (3.5-5.1); SODIUM LEVEL 140 MEQ/L (136-145); TOTAL PROTEIN 7.2 GM/DL (6.4-8.2)
[2017-05-05 18:30] LABS: VITAMIN B12 LEVEL 465 PG/ML (247-911)
[2017-05-08 00:06] LABS: EBV VIRAL CAPSID AG IgM <36.0 U/mL (0.0-35.9)
== END ==
LOC: M SFHCLERA 14:15
DX: Z98.890 Other specified postprocedural states (principal); R50.9 Fever, unspecified
CPT/HCPCS: 83540

== ENCOUNTER → 2017-08-04 | Outpatient (REF) | payer OTHER | LOC: M SFHCWAGY 15:16 | DX: Z12.4 Encounter for screening for malignant neoplasm of cervix (principal) ==

== ENCOUNTER → 2018-05-28 | Outpatient (REF) | payer OTHER ==
[~2018-05-28] MED LIST: CIPR-249 PO; OMEP20CA3 PO; PYRI1TAB5 PO
[2018-05-28 11:27] LABS: HEMATOCRIT 34.7 % (36.0-47.0); HEMOGLOBIN 11.1 g/dl (12.0-15.5); MEAN CORPUSCULAR VOLUME 87.4 fl (80.0-96.0); PLATELET COUNT, AUTOMATED 371 10^3/uL (150-450); RED BLOOD COUNT 3.97 10^6/uL (4.00-5.40); WHITE BLOOD COUNT 6.6 10^3/uL (4.0-10.0)
[2018-05-28 11:58] LABS: ALBUMIN 3.8 GM/DL (3.2-5.2); ALT/SGPT 19 U/L (12-78); BILIRUBIN,TOTAL 0.5 MG/DL (0.2-1.0); BLOOD UREA NITROGEN 9 MG/DL (7-18); CALCIUM LEVEL 8.7 MG/DL (8.5-10.1); CARBON DIOXIDE LEVEL 25 MEQ/L (21-32); CHLORIDE LEVEL 107 MEQ/L (98-107); CHOLESTEROL LEVEL 131 MG/DL (<200); CHOLESTEROL RISK RATIO 2.015 (<5); CREATININE FOR GFR 0.85 MG/DL (0.55-1.30); GLOMERULAR FILTRATION RATE > 60.0 (>60); GLUCOSE, FASTING 84 MG/DL (70-100); HDL CHOLESTEROL 65 MG/DL (>40); IRON (FE) 36 UG/DL (50-170); LDL CHOLESTEROL 57 MG/DL (<100); NON-HDL-C 66 MG/DL; PERCENT SATURATION 8.5 % (13.2-45.0); POTASSIUM SERUM 4.3 MEQ/L (3.5-5.1); SODIUM LEVEL 139 MEQ/L (136-145); TOTAL IRON BINDING CAPACITY 426 UG/DL (250-450); TOTAL PROTEIN 6.9 GM/DL (6.4-8.2); TRIGLYCERIDES LEVEL 43 MG/DL (<150); VITAMIN B12 LEVEL 510 PG/ML (247-911)
[2018-05-28 12:10] LABS: HEMATOCRIT 34.7 % (36.0-47.0)
== END ==
LOC: M SFHCCLAY 07:40
PROVIDERS: ATTEND Family Medicine
DX: Z98.84 Bariatric surgery status (principal); Z00.00 Encounter for general adult medical examination without abnormal findings; Z68.41 Body mass index [BMI] 40.0-44.9, adult

== ENCOUNTER → 2018-11-26 | Outpatient (REF) | payer OTHER ==
[~2018-11-26] MED LIST changes: +OMEP1CAP73 PO; -OMEP20CA3 PO
[2018-11-26 12:10] LABS: HEMATOCRIT 38.2 % (36.0-47.0); HEMOGLOBIN 12.1 g/dl (12.0-15.5); MEAN CORPUSCULAR HEMOGLOBIN 27.9 pg (27.0-33.0); MEAN CORPUSCULAR HGB CONC 31.7 g/dl (32.0-36.5); MEAN CORPUSCULAR VOLUME 88.2 fl (80.0-96.0); PLATELET COUNT, AUTOMATED 366 10^3/uL (150-450); RED BLOOD COUNT 4.33 10^6/uL (4.00-5.40); WHITE BLOOD COUNT 6.8 10^3/uL (4.0-10.0)
[2018-11-26 12:31] LABS: FOLATE > 24.0 NG/ML (>5.4); FREE T4 0.98 NG/DL (0.76-1.46); IRON (FE) 86 UG/DL (50-170); VITAMIN B12 LEVEL 447 PG/ML (247-911)
== END ==
LOC: M SFHCCLAY 07:48
PROVIDERS: ATTEND Family Medicine
DX: R53.83 Other fatigue (principal); Z98.84 Bariatric surgery status

== ENCOUNTER → 2018-12-16 | Outpatient (REF) | payer OTHER ==
[~2018-12-16] MED LIST changes: -OMEP1CAP73 PO; +OMEP20CA4 PO
[2018-12-16 15:25] LABS: HEMOGLOBIN A1c 5.1 %
== END ==
LOC: M SFHCCLAY 08:14
PROVIDERS: ATTEND Family Medicine
DX: Z68.39 Body mass index [BMI] 39.0-39.9, adult (principal); Z98.84 Bariatric surgery status; E55.9 Vitamin D deficiency, unspecified

== ENCOUNTER → 2019-01-07 | Outpatient (REF) | payer OTHER ==
[2019-01-07 17:32] LABS: ESTRADIOL 79.9 PG/ML; LUTEINIZING HORMONE 15.1 mIU/mL; PROGESTERONE 1.85 NG/ML
[2019-01-11 00:06] LABS: DEHYDROEPIANDROSTERONE SULFATE 189.7 ug/dL (84.8-378.0); TESTOSTERONE FREE (DIRECT) 1.3 pg/mL (0.0-4.2)
== END ==
LOC: M SFHCWAGY 15:57
PROVIDERS: ATTEND Nurse Practitioner Women's Health
DX: N92.6 Irregular menstruation, unspecified (principal); L67.8 Other hair color and hair shaft abnormalities

== ENCOUNTER → 2019-01-13 | Outpatient (CLI) | payer OTHER ==
--- NOTE | 2019-01-14 04:19 | REP ---
Clinical: Irregular menstrual cycles and pelvic pain . Technique: Transabdominal pelvic ultrasound followed by transvaginal examination for better evaluation of the endometrium and adnexa with color Doppler evaluation of the ovaries. Findings: Bladder is unremarkable and measures 9.3 x 10.8 x 8.0 cm . Normal anteverted uterus measures 7.3 x 2.7 x 4.2 cm . The endometrial complex measures 3.6 mm thickness. No discrete uterine or endometrial abnormalities are appreciated. Bilateral ovaries are normal in appearance and vascularity without evidence for torsion. Right ovary measures 3.8 x 2.1 x 2.0cm with 2.1 cm hyperechoic lesion likely hemorrhagic cyst ; R I = 0.60 . Left ovary measures 2.9 x 1.8 x 2.5 cm ; R I = 0.63 . No free fluid or adnexal mass lesion . Impression: 1. right ovarian cyst likely hemorrhagic cyst. Electronically Signed by Diallo Calzada MD 01/14/2019 04:10 A
== END ==
LOC: M RAD 17:27
PROVIDERS: ATTEND Nurse Practitioner Women's Health
DX: N92.6 Irregular menstruation, unspecified (principal); N83.201 Unspecified ovarian cyst, right side

== ENCOUNTER → 2019-10-04 | Outpatient (REF) | payer BC ==
[~2019-10-04] MED LIST changes: +OMEP1CAP73 PO; -OMEP20CA4 PO
[2019-10-04 12:16] LABS: HEMATOCRIT 37.1 % (36.0-47.0); HEMOGLOBIN 11.7 g/dl (12.0-15.5); MEAN CORPUSCULAR HEMOGLOBIN 27.3 pg (27.0-33.0); MEAN CORPUSCULAR HGB CONC 31.5 g/dl (32.0-36.5); MEAN CORPUSCULAR VOLUME 86.5 fl (80.0-96.0); PLATELET COUNT, AUTOMATED 349 10^3/uL (150-450); RED BLOOD COUNT 4.29 10^6/uL (4.00-5.40); WHITE BLOOD COUNT 7.9 10^3/uL (4.0-10.0)
[2019-10-04 13:53] LABS: CHLAMYDIA DNA AMPLIFICATION NEGATIVE (NEGATIVE); GC DNA AMPLIFICATION NEGATIVE (NEGATIVE)
[2019-10-04 17:46] LABS: FOLATE > 24.0 NG/ML (>5.4); GLUCOSE CHALLENGE TEST 1 HOUR 36 MG/DL (LESS THAN 140); VITAMIN B12 LEVEL 484 PG/ML (247-911)
[2019-10-05 10:32] LABS: HEPATITIS C VIRUS ABY INDEX 0.1 INDEX (<0.8); HIV 1&2 SCREEN CENTAUR NEGATIVE (NEGATIVE)
== END ==
LOC: M PLALAB 08:04
PROVIDERS: ATTEND Advanced Practice Midwife
DX: O99.841 Bariatric surgery status complicating pregnancy, first trimester (principal)

== ENCOUNTER → 2019-11-01 | Outpatient (REF) | payer BC ==
[2019-11-28 13:55] LABS: APPEARANCE, URINE CLEAR (CLEAR); BACTERIA, URINE AUTO 1+ (NEGATIVE); BILIRUBIN, URINE AUTO NEGATIVE (NEGATIVE); BLOOD, URINE BLOOD NEGATIVE (NEGATIVE); COLOR, URINE YELLOW (YELLOW); GLUCOSE, URINE (UA) AUTO NEGATIVE (NEGATIVE); KETONE, URINE AUTO NEGATIVE (NEGATIVE); LEUKOCYTE ESTERASE, URINE AUTO NEGATIVE (NEGATIVE); MUCUS, URINE SMALL (NEGATIVE); NITRITE, URINE AUTO NEGATIVE (NEGATIVE); PROTEIN, URINE AUTO NEGATIVE (NEGATIVE); RBC, URINE AUTO 1 /HPF (0-3); SPECIFIC GRAVITY URINE AUTO 1.008 (1.002-1.035); SQUAMOUS EPITHELIAL CELL UR AU 1 /HPF (0-6); UROBILINOGEN, URINE AUTO 0.2 mg/dL (0.0-2.0); WBC, URINE AUTO 0 /HPF (0-3)
== END ==
LOC: M SFHCPLAZ 16:59
PROVIDERS: ATTEND Internal Medicine Infectious Disease
DX: N39.0 Urinary tract infection, site not specified (principal)

== ENCOUNTER → 2019-11-24 | Outpatient (CLI) | payer BC ==
--- NOTE | 2019-12-13 17:34 | REP ---
OBSTETRIC SONOGRAPHY HISTORY: Supervision of normal . For anatomy. FINDINGS: Scanning through the gravid uterus demonstrates a viable single intrauterine gestation in a breech lie. An anterior grade 1 placenta is seen without evidence of placenta previa or abruption. Amniotic fluid is subjectively normal. Closed cervical length measured transabdominally is 3.5 cm. heart rate is recorded at 155 beats per minute. Exam quality is limited to some degree by patient body habitus. The following anatomic structures are identified and felt to be unremarkable: Cisterna magna, cavum septum, thalami, spine, left-sided stomach, kidneys and bladder, four chamber heart with left and right ventricular outflow tract views, three-vessel cord, abdominal wall cord insertion, upper and lower extremities, face, and lips. BIOMETRY CHART: BPD 45 mm 19 weeks 5 days Head Circumference 181 mm 20 weeks 4 days Abdominal Circumference 169 mm 22 weeks 0 days Femur Length 33 mm 20 weeks 2 days Humeral Length 31 mm 20 weeks 3 days Estimated Weight 395 g 71st percentile IMPRESSION: Viable single intrauterine gestation at 20 weeks 5 days by todays composite criteria. Estimated date of delivery (LIZBETH) by todays criteria 04/07/2020. MTDD
== END ==
LOC: M WHC 13:46
PROVIDERS: ATTEND Advanced Practice Midwife
DX: Z34.82 Encounter for supervision of other normal pregnancy, second trimester (principal)

== ENCOUNTER → 2020-01-04 | Outpatient (CLI) | payer BC ==
[2020-01-04 10:45] LABS: HEMATOCRIT 32.6 % (36.0-47.0); HEMOGLOBIN 10.2 g/dl (12.0-15.5); MEAN CORPUSCULAR HEMOGLOBIN 27.2 pg (27.0-33.0); MEAN CORPUSCULAR HGB CONC 31.3 g/dl (32.0-36.5); MEAN CORPUSCULAR VOLUME 86.9 fl (80.0-96.0); PLATELET COUNT, AUTOMATED 326 10^3/uL (150-450); RED BLOOD COUNT 3.75 10^6/uL (4.00-5.40); WHITE BLOOD COUNT 8.6 10^3/uL (4.0-10.0)
== END ==
LOC: M PLALAB 08:15
PROVIDERS: ATTEND Obstetrics & Gynecology
DX: Z34.02 Encounter for supervision of normal first pregnancy, second trimester (principal)

== ENCOUNTER 2020-02-03 17:10 | Outpatient (CLI) | payer BC ==
[2020-02-03] VITALS (10 sets, daily range): BP systolic 91–130; BP diastolic 50–83
[~2020-02-03] VITALS: Ht 160 cm; Wt 106.4 kg
[2020-02-03] MEDS ORDERED: LACTATED RINGER'S 1000 ML IV ONE (17:45)
--- NOTE | 2020-02-03 18:05 | IPNPDOC ---
Text Note Date of Service The patient was seen on 02/03/20. NOTE Subjective: Magalys is a 34 y/o at 30.5 weeks by LMP (07/03/2019) with LIZBETH 04/08/2020. She started care at [facility] in the first trimester. History significant for hypertension (no meds), gastric bypass, HSV2, migraines, morbid obesity, and anxiety. Blood Type A+, 19.5 wk scan (11/24/19) showed anterior placenta, no previa noted. She presents today with a c/o bright red vaginal bleeding down her legs that started at 1630. She reports mild low back pain, no abdominal pain. Reports active movement and denies UC. Objective: VSS, BP 125/71, P 73 External Genitalia: small amount of dried red blood on skin Internal Genitalia: Speculum exam: small amount of bleeding in vagina, cleaned with 1 large cotton swab. Cervix: Appeared closed, long, cervical mucous at external os. SVE FT/long/high, soft, posterior Abdomen: Palpates soft, non tender FHR 145bpm, moderate variability, positive accelerations, no decelerations, Cat 1 UC: uterine irritability noted on [place] Plan: Start IV, then LR bolus 500mL then continue at 125mL/hr. Ultrasound to rule out abruption. CBC, PT/PTT, Fibrinogen to be drawn. Dr. Disla aware of patient's status and POC. Silvana Taylor CNM Feb 03, 2020 17:47
[2020-02-03] MEDS: BETAMETHASONE SOLUSPAN 6MG/ML 5ML VIAL (J0702 PER 3MG) IM SCH (18:18)
[2020-02-03 18:39] LABS: HEMATOCRIT 30.8 % (36.0-47.0); HEMOGLOBIN 9.8 g/dl (12.0-15.5); MEAN CORPUSCULAR HEMOGLOBIN 26.5 pg (27.0-33.0); MEAN CORPUSCULAR HGB CONC 31.8 g/dl (32.0-36.5); MEAN CORPUSCULAR VOLUME 83.2 fl (80.0-96.0); PLATELET COUNT, AUTOMATED 346 10^3/uL (150-450); WHITE BLOOD COUNT 10.6 10^3/uL (4.0-10.0)
--- NOTE | 2020-02-03 18:58 | REPVR ---
PROCEDURE INFORMATION: Exam: US ; Follow up Exam date and time: 02/03/2020 6:15 PM Age: 34 years old Clinical indication: Lmp or gestational age (in weeks): 30w 6d; Other: Vaginal bleeding; ; Additional info: 3rd trimester bleeding, placenta, abruption? TECHNIQUE: Imaging protocol: Transabdominal ultrasound of the uterus, real time with image documentation. Follow-up (eg, re-evaluation of size by measuring standard growth parameters and amniotic fluid volume, re-evaluation of organ system(s) suspected or confirmed to be abnormal on a previous scan). COMPARISON: OBS COMPLETE US 11/24/2019 2:02 PM FINDINGS: Gestation: Intrauterine gestation. Biometry BPD = 7.45 cm; estimated menstrual age = 30 W 0 D; +/-3 W 1 D HC = 27.23 cm; estimated menstrual age = 29 W 60; +/-2 W 1 D AC = 27.12 cm; estimated menstrual age = 31 W 2D; +/-3 W 0 D FL = 5.98 cm; estimated menstrual age = 31 W 1 D; +/-3 W 0 D HC/AC Ratio = 1 (0.99-1.21) EFW = 1665 g +/-240 4 g (54th percentile) JAYSHREE= 17.05 Presentation = cephalic Placenta = anterior and free of the cervical os. No retroplacental hemorrhage HR = 142 bpm Umbilical artery Doppler: RI = 0.64; systolic/diastolic ratio = 2.8 (1.91-4) Survey Ventricle = 0.48 cm/normal Stomach = Normal Kidneys = Normal Bladder = Normal Maternal cervix-not well seen. Measures approximately 4.2 cm in length. IMPRESSION: 1. Single live intrauterine with estimated menstrual age = 30 W 4 D. Can weeks and 1 day. This compares to an expected gestational age of 30 weeks and 6 days based on previous ultrasound dated 11/24/2019. 2. No retroplacental hemorrhage. Electronically signed by: Nadeen Winkler On 02/03/2020 18:58:16 PM
[2020-02-03 18:59] LABS: ALT/SGPT 14 U/L (12-78); BILIRUBIN,TOTAL 0.2 MG/DL (0.2-1.0); CREATININE FOR GFR 0.68 MG/DL (0.55-1.30); GLOMERULAR FILTRATION RATE > 60.0 (>60); LDH LACTATE DEHYDROGENASE 138 U/L (84-246); URIC ACID 2.1 MG/DL (2.6-6.0)
[2020-02-03 19:13] LABS: PROTHROMBIN TIME 13.4 SECONDS (12.5-14.3)
[2020-02-03 19:14] LABS: PARTIAL THROMBOPLASTIN TIME 25.5 SECONDS (24.2-38.5)
[2020-02-03] MEDS: LR 1,000 ML IV SCH (19:40)
[2020-02-03] MEDS ORDERED: NIFEdipine 10 MG CAP PO ONE (20:30)
--- NOTE | 2020-02-03 20:47 | IPNPDOC ---
Text Note Date of Service The patient was seen on 02/03/20. NOTE Outpatient Subjective: Patient reports mild cramping "more irritating than painful", 1- 2/10 on pain scale. Spotting noted on pad. She has received 1 dose of Betamethasone today. Objective: SVE FT/long/high, moderate amount bright red blood on gloves, with informed consent. KB 0.00, WBC 10.6, H/H 9.8/30.8, Plt 346, AST 11, ALT 14, Uric Acid 2.1, urine P:C ratio not done due to vaginal bleeding. FHR 150bpm, Cat 1 tracing UC uterine irritability on toco, resting tone palpates soft Assessment: Contractions, Vaginal Bleeding Plan: Procardia 20mg PO, continuous EFM, LR at 125mL/hr, admit for observation overnight. Per consult Dr Disla. VS,Chantel, I+O VS, Chantel, I+O Laboratory Tests 02/03/20 18:18 Vital Signs Date Time Temp Pulse Resp B/P (MAP) Pulse Ox O2 Delivery O2 Flow Rate FiO2 02/03/20 19:38 65 113/59 (77) 02/03/20 18:20 18 Silvana Taylor CNM Feb 03, 2020 20:46
[2020-02-04 01:10] VITALS: BP 103/52
[2020-02-04 04:29] VITALS: BP 108/58
[2020-02-04] MEDS ORDERED: CALCIUM CARBONATE 500 MG CHEW U/D PO PRN (04:45)
[2020-02-04] MEDS: LR 1,000 ML IV SCH ×2 (05:12→09:45)
[2020-02-04 05:14] VITALS: BP 95/52
[2020-02-04 10:23] LABS: HEMATOCRIT 30.1 % (36.0-47.0); HEMOGLOBIN 9.4 g/dl (12.0-15.5); MEAN CORPUSCULAR HEMOGLOBIN 26.3 pg (27.0-33.0); MEAN CORPUSCULAR HGB CONC 31.2 g/dl (32.0-36.5); MEAN CORPUSCULAR VOLUME 84.3 fl (80.0-96.0); PLATELET COUNT, AUTOMATED 332 10^3/uL (150-450); RED BLOOD COUNT 3.57 10^6/uL (4.00-5.40); WHITE BLOOD COUNT 14.3 10^3/uL (4.0-10.0)
[2020-02-04 14:02] VITALS: BP 125/79
[2020-02-04] MEDS: BETAMETHASONE SOLUSPAN 6MG/ML 5ML VIAL (J0702 PER 3MG) IM SCH (14:03)
== END 2020-02-04 14:57 | disposition home or self-care (01) ==
LOC: M LDO 17:10
PROVIDERS: ATTEND Advanced Practice Midwife
DX: O26.853 Spotting complicating pregnancy, third trimester (principal); N93.8 Other specified abnormal uterine and vaginal bleeding; O26.893 Other specified pregnancy related conditions, third trimester; M54.9 Dorsalgia, unspecified; Z3A.30 30 weeks gestation of pregnancy
CPT/HCPCS: 36415; 59025; 76816; 76819; 76820; 82247; 82565; 83615; 84450; 84460; 84550; 85027; 85384; 85460; 85610; 85730; 96372; G0378; G0463; J0702

== ENCOUNTER → 2020-02-13 | Outpatient (CLI) | payer BC ==
--- NOTE | 2020-02-14 04:50 | REP ---
INDICATION: CK PLACENTA FOR HEMORRHAGE/046.93 COMPARISON: 02/03/2020 TECHNIQUE: Transabdominal obstetrical ultrasound with color Doppler evaluation. FINDINGS: Examination demonstrates a single live intrauterine in cephalic presentation. motion is identified by technologist. Placenta is noted anterior and grade 2 without evidence for placenta previa or abruption. Amniotic fluid volume is normal. Cervix measures 4.0 cm in length and appears closed.. Gestational age by 1st U/S 32 weeks 2 days with LIZBETH 04/07/2020. FHR equals 153 beats per minute. JAYSHREE: 15.8 cm (8.5-24.3) IMPRESSION: Single live advanced gestation in cephalic presentation. No evidence for placenta previa. Amniotic fluid index within normal range. <Electronically signed by Diallo Calzada > 02/14/20 [id number]
== END ==
LOC: M WHC 15:36
PROVIDERS: ATTEND Advanced Practice Midwife
DX: O46.93 Antepartum hemorrhage, unspecified, third trimester (principal); Z3A.32 32 weeks gestation of pregnancy

== ENCOUNTER → 2020-03-13 | Outpatient (REF) | payer BC | LOC: M PLALAB 15:57 | PROVIDERS: ATTEND Obstetrics & Gynecology | DX: Z34.93 Encounter for supervision of normal pregnancy, unspecified, third trimester (principal); Z3A.36 36 weeks gestation of pregnancy ==

== ENCOUNTER 2020-04-14 19:17 | Inpatient (IN) | payer BC ==
[~2020-04-14] VITALS: Ht 160 cm; Wt 109.2 kg
[2020-04-14] MEDS: FAMOTIDINE 20 MG TAB PO SCH (09:00)
[~2020-04-14 19:17] MED LIST changes: +valACYclovir HCL 500 MG TAB PO SCH
[2020-04-14 19:38] VITALS: BP 99/54
[2020-04-14] MEDS ORDERED: PRENCHW PO (19:39)
[2020-04-14] MEDS ORDERED: VALT500T PO (19:43)
[2020-04-14] MEDS ORDERED: FAMO20TA PO (19:43)
[2020-04-14 20:48] VITALS: BP 112/71
[2020-04-14 22:25] VITALS: BP 121/55
[2020-04-14] MEDS ORDERED: LACTATED RINGER'S 1000 ML IV STA (23:01)
[2020-04-14] MEDS ORDERED: OXYTOCIN DRIP 30 UNITS in IV 1 EA IV SCH (23:15)
--- NOTE | 2020-04-14 23:18 | HPEPDOC ---
Obstetrical History & Physical General Date of Admission History of Present Illness 34-year-old G1, P0 at 40+6 weeks gestation. Presents with frequent, painful uterine contractions over the past several hours. Denies any loss of fluid or vaginal bleeding. Reports regular movement. ROS: no MEDELLIN, cp, sob, fever/chills/nausea/vomiting. 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, No other STI or dysplasia OB: G1 Sochx: No tobacco, alcohol or drug use FamHx: DM labs: Blood type A+, antibody screen negative, HepBsAg neg, HIV neg, rubella immune, Hep C antibody negative, RPR nonreactive, CT/GC neg, urine culture negative, 1 hour glucose challenge test 81 , GBS negative imaging: no anomalies , no placenta previa Past Medical History Allergies Coded Allergies: Kiwi (Verified Allergy, Mild, 04/14/20) scratchy tongue Medications Scheduled Famotidine (Famotidine) 20 Mg Tablet, 1 TAB PO DAILY Pnv No.118/Iron Fumarate/FA ( 19 Chewable Tablet) 1 Each Tab.chew, 1 TAB PO DAILY Valacyclovir HCl (Valtrex) 500 Mg Tablet, 500 MG PO BID Physical Examination Physical Examination GENERAL: Alert and oriented times three. BREAST: . ABDOMEN: Gravid and non-tender to touch. FETUS: Is vertex (VTX) by sterile vaginal examination (SVE), fetus is vertex (VTX) by Flaco. HEART RATE: Regular rate and rhythm. LUNGS: Clear to auscultation (CTA). EXTREMITIES: No edema. No clonus. SVE: 3-4cm, 90%, -2, bulging membranes, cephalic EFM: Category 1 [place]: ctxs are every 3-5min . Vital Signs/I&O Vital Signs Date Time Temp Pulse Resp B/P (MAP) Pulse Ox O2 Delivery O2 Flow Rate FiO2 04/14/20 20:48 70 18 112/71 (85) 04/14/20 19:38 98.1 98 Assessment/Plan Assessment 34-year old at 40+6 weeks gestation. Dx: active labor at term. Reassuring maternal and status. Plan Admit and orient. Routine labs/orders Augment labor with Pitocin as needed Mode of delivery plan: ; as indicated. SALBADOR CARRERA DO Apr 14, 2020 23:18
[2020-04-14 23:19] LABS: HEMATOCRIT 35.6 % (36.0-47.0); HEMOGLOBIN 11.6 g/dl (12.0-15.5); MEAN CORPUSCULAR HEMOGLOBIN 27.3 pg (27.0-33.0); MEAN CORPUSCULAR HGB CONC 32.6 g/dl (32.0-36.5); MEAN CORPUSCULAR VOLUME 83.8 fl (80.0-96.0); PLATELET COUNT, AUTOMATED 255 10^3/uL (150-450); RED BLOOD COUNT 4.25 10^6/uL (4.00-5.40); WHITE BLOOD COUNT 11.9 10^3/uL (4.0-10.0)
[2020-04-14] MEDS: LR 1,000 ML IV SCH (23:26)
[2020-04-14 23:27] VITALS: BP 106/73
[2020-04-15] VITALS (29 sets, daily range): BP systolic 88–148; BP diastolic 50–78
[2020-04-15] MEDS ORDERED: FENTANYL 2MCG/ML ROPIVACAINE 0.2% IN 0.9% NACL 100ML IVBAG As Ordered ONE (01:19)
[2020-04-15] MEDS ORDERED: ONDANSETRON 4MG/2ML VIAL IV PRN ×4 (02:30→07:45)
[2020-04-15] MEDS ORDERED: EPIDURAL COMMENT XX SCH (02:30)
[2020-04-15] MEDS ORDERED: NALOXONE INJ 0.4MG/1ML VIAL (J2310 PER 1MG) IV PRN ×3 (02:30→06:47)
[2020-04-15] MEDS ORDERED: FENTANYL/ROPIVACAINE/NACL BAG 100 ML EPIDURAL SCH (02:30)
[2020-04-15] MEDS ORDERED: diphenhydrAMINE 50MG/ML VIAL (J1200) IV PRN ×2 (02:30→06:47)
[2020-04-15] MEDS ORDERED: REFRIGERATOR IV KEYS XX PRN (02:30)
[2020-04-15] MEDS ORDERED: LACTATED RINGER'S 1000 ML IV PRN (02:30)
[2020-04-15] MEDS ORDERED: EPIDURAL/PCA KEYS XX PRN (02:30)
[2020-04-15] MEDS: ePHEDrine SULFATE 25 MG/5 ML(5MG/ML) SYRINGE IV PRN ×2 (02:39→02:46)
[2020-04-15] MEDS: LR 1,000 ML IV SCH ×4 (05:24→23:30)
--- NOTE | 2020-04-15 05:44 | IPNPDOC ---
Obstetrical Progress Note Date of Service Apr 15, 2020 Subjective Patient receiving adequate pain control with epidural. I was called into room by RN after active labor had progressed in a normal fashion with Pitocin augmentation. Light meconium was noted at moment of SROM. A Cat II FHR was noted when she was determined to be completely dilated and in the second stage of labor. An FSE was placed for a more accurate FHR assessment. FHR continued to be Cat II with tachycardia , moderate variability, and rare accelerations. No maternal fever, no foul odor / clinical e/o IAI. I decided to proceed with guiding her through maternal pushing efforts. Pushing efforts have been excellent. However, there may be some cephalopelvic disproportion. I suspect occiput posterior position (slightly asynclitic) as well. The FHR improved to Cat I. Therefore, Pitocin augmentation was restarted. Objective Vital Signs Date Time Temp Pulse Resp B/P (MAP) Pulse Ox O2 Delivery O2 Flow Rate FiO2 04/15/20 03:03 80 16 107/54 (71) 04/15/20 01:28 97.9 04/14/20 19:38 98 Assessment and Plan Additional Comments Current maternal and status is reassuring. Second stage of labor. Concern for CPD/arrest of descent; expressed these concerns to patient and FOB. Continue maternal pushing efforts. SALBADOR CARRERA DO Apr 15, 2020 05:44
[2020-04-15] MEDS ORDERED: ceFAZolin 2 GM/D5W 50 ML IV BAG (J0690 PER 500MG) As Ordered ONE (05:57)
[2020-04-15] MEDS ORDERED: BICITRA 30ML SOLN UDC As Ordered ONE (05:57)
[2020-04-15] MEDS ORDERED: AZITHROMYCIN INJ 500MG VIAL (J0456 PER 500MG) As Ordered ONE (06:01)
[2020-04-15] MEDS ORDERED: ceFAZolin 1GM VIAL (J0690 PER 500MG) As Ordered ONE (06:01)
[2020-04-15] MEDS ORDERED: BICITRA 30ML SOLN UDC PO ONE (06:15)
[2020-04-15] MEDS ORDERED: AZITHROMYCIN INJ 500 MG, VIAL MATE ADAPTER 1 EACH in D5W 250 ML IV ONE (06:15)
[2020-04-15] MEDS ORDERED: ceFAZolin SOD 3 GM in IV 1 EA IV ONE (06:15)
[2020-04-15] MEDS ORDERED: LIDOCAINE 2% W/EPINEPHRINE 20ML VIAL **PRES FREE As Ordered ONE (06:47)
[2020-04-15] MEDS ORDERED: OXYTOCIN 30 UNITS IN 0.9% NaCl 500ML IV BAG (J2590) As Ordered ONE ×2 (06:47→07:35)
[2020-04-15] MEDS ORDERED: dexameTHASONE 4 MG/ML 1ML VIAL (J1100 PER 1MG) As Ordered ONE (06:47)
[2020-04-15] MEDS ORDERED: SODIUM BICARBONATE 8.4% INJ 50MEQ 50 ML VIAL As Ordered ONE (06:47)
[2020-04-15] MEDS ORDERED: ONDANSETRON 4MG/2ML VIAL As Ordered ONE (06:47)
[2020-04-15] MEDS ORDERED: KETOROLAC 60MG 2ML VIAL As Ordered ONE (06:47)
[2020-04-15] MEDS ORDERED: METOCLOPRAMIDE INJ 10MG/2ML VIAL (J2765 PER 1) IV PRN ×2 (06:47→07:45)
[2020-04-15] MEDS ORDERED: MORPHINE PRES-FREE INJ 10 MG/10 ML VIAL (J2274) As Ordered ONE (06:47)
[2020-04-15 07:04] LABS: CORD GAS ABE V -4.4; CORD GAS HCO3 V 21.5 MEQ/L; CORD GAS O2 SAT V 62.5 %; CORD GAS PCO2 V 42.4 mmHg; CORD GAS PH V 7.323 UNITS; CORD GAS PO2 V 27.9 mmHg; CORD GAS TCO2 V 22.8 MEQ/L
[2020-04-15 07:06] LABS: CORD GAS ABE A -3.9; CORD GAS HCO3 A 23.4 MEQ/L; CORD GAS O2 SAT A 24.2 %; CORD GAS PCO2 A 50.6 mmHg; CORD GAS PH A 7.282 UNITS; CORD GAS PO2 A 15.4 mmHg; CORD GAS SBC A 19.6 MEQ/L; CORD GAS TCO2 A 24.9 MEQ/L
[2020-04-15] MEDS ORDERED: RHOGAM 300 MCG (1500 IU) INJ (J2790) IM SCH (07:30)
[2020-04-15] MEDS ORDERED: ACETAMINOPHEN 500 MG TAB PO PRN (07:30)
[2020-04-15] MEDS ORDERED: MEASLES,MUMPS,RUBELLA VACCINE INJ (MMR-II) (90707) SC SCH (07:30)
[2020-04-15] MEDS ORDERED: OXYTOCIN DRIP 30 UNITS in IV 1 EA IV SCH (07:30)
[2020-04-15] MEDS ORDERED: PERCOCET 5MG/325MG TAB PO PRN ×3 (07:30→07:45)
--- NOTE | 2020-04-15 07:31 | ROOPDOC ---
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 IV FLUIDS: 1100 mL LR URINE OUTPUT: 300 mL COMPLICATIONS: None. PREOPERATIVE ANTIBIOTICS: Ancef 3g IV x 1, Azithromycin 500mg IV. COMPLICATIONS: none DATA: Apgars 9 and 9. Birthweight 3220 g, 7 lbs 2 oz. Cord gases: arterial pH 7.28/-3.9 , venous pH 7.32/-4.4 SPECIMENS: none PRIMARY INDICATION FOR : Arrest of descent/cephalopelvic disproportion DESCRIPTION OF PROCEDURE: The patient was counseled on the risks, benefits, indications and alternatives of the procedure. Informed consent was obtained. She was taken to the operating room with IV running and placed on the operating table in the dorsal supine position with a leftward tilt. Regional anesthesia was found to be adequate. Sequential compression devices were placed on the lower extremities. A Alvarez catheter was placed under sterile conditions. She was prepared and draped in normal sterile fashion. A time out was performed per protocol. Regional anesthesia was again found to be adequate. A Pfannenstiel skin incision was made with the 10 blade. The 10 blade was used to dissect down to the level of the rectus sheath fascia. The rectus sheath pressure was incised midline and this was extended bilaterally with Taveras scissors , and manual stretch. The rectus muscle bellies were dissected off the rectus sheath fascia superiorly and inferiorly using both sharp and blunt dissection. The midline was identified. The peritoneum was identified and entered digitally. The peritoneal opening was extended with manual stretch. The Mobius retractor was placed. The vesicouterine peritoneum was dissected with Metzenbaum scissors to create the bladder flap. A low transverse uterine incision was made with the 10 blade. This was extended with manual stretch. The amniotic sac was punctured, and clear fluid was noted. The baby delivered through the hysterotomy without difficulty. The cord was doubly clamped and cut, and the baby was handed off to awaiting care. data shown above. Cord gases were obtained. The placenta was removed manually. The intrauterine cavity was cleared of all clot and debris. The hysterotomy was closed with 0 Vicryl in running locked fashion. This was reinforced with a second imbricating layer using 0 Vicryl in running fashion. Excellent hemostasis of the hysterotomy was noted. The pelvis was irrigated and the fluid suctioned. The Mobius retractor was removed. The peritoneum was closed with 3-0 Vicryl running fashion. The rectus muscle bellies were reapproximated with interrupted stitches using 3-0 Vicryl. The rectus muscles bellies were hemostatic. The rectus sheath fascia was closed with 0 Vicryl running fashion. The subcutaneous layer was irrigated and the fluid suctioned. Small bleeding vessels were cauterized with Bovie. Excellent hemostasis was noted. The subcutaneous layer was reapproximated with 3-0 Vicryl running fashion. Skin was closed with 3-0 Monocryl in subcuticular fashion. An Optifoam bandage was placed over the closed incision. Sponge, needle and instrument counts were correct per protocol throughout the procedure. The patient tolerated the entire procedure very well. She was transferred to the PACU in stable condition. DO EDITH Beckett JONATHAN R. DO Apr 15, 2020 07:31
[2020-04-15] MEDS ORDERED: LR 1,000 ML IV SCH (07:45)
[2020-04-15] MEDS ORDERED: fentaNYL 100 MCG/2 ML INJECTION (J3010) IV PRN (07:45)
[2020-04-15 08:04] LABS: HEMATOCRIT 32.5 % (36.0-47.0); HEMOGLOBIN 10.4 g/dl (12.0-15.5); MEAN CORPUSCULAR VOLUME 84.4 fl (80.0-96.0); PLATELET COUNT, AUTOMATED 230 10^3/uL (150-450); RED BLOOD COUNT 3.85 10^6/uL (4.00-5.40); WHITE BLOOD COUNT 17.4 10^3/uL (4.0-10.0)
[2020-04-15 08:26] LABS: CREATININE FOR GFR 0.85 MG/DL (0.55-1.30); GLOMERULAR FILTRATION RATE > 60.0 (>60)
[2020-04-15] MEDS ORDERED: DOK1CAP7 PO (08:55)
[2020-04-15] MEDS ORDERED: PERCOCET PO (08:55)
[2020-04-15] MEDS ORDERED: IBUP80TA PO (08:55)
[2020-04-15] MEDS: DOCUSATE SODIUM 100MG CAPSULE PO SCH ×2 (09:00→21:26)
[2020-04-15] MEDS: FAMOTIDINE 20 MG TAB PO SCH (09:33)
[2020-04-15] MEDS: PRENATAL VITAMINS CHEWABLE TABLET PO SCH (09:34)
[2020-04-15] MEDS: KETOROLAC 30 MG/ML 1ML VIAL IV SCH ×2 (13:44→18:25)
[2020-04-15] MEDS: ENOXAPARIN 30MG/0.3ML SYRINGE (J1650 PER 10MG) SC SCH ×2 (13:45→21:26)
[2020-04-15] MEDS: valACYclovir HCL 500 MG TAB PO SCH (21:25)
[2020-04-16] VITALS (7 sets, daily range): BP systolic 93–129; BP diastolic 50–80
[2020-04-16] MEDS: KETOROLAC 30 MG/ML 1ML VIAL IV SCH (01:19)
--- NOTE | 2020-04-16 06:27 | IPNPDOC ---
Progress Note Date of Service: Apr 16, 2020 Day#: 1 Progress Note SUBJECT: Status post PLTCS She has been ambulating, voiding spontaneously without issue and tolerating regular diet. Lochia decreasing/minimal. Pain is well-controlled. Incision bandage is clean/unsaturated. Denies headache, visual changes, right upper quadrant pain, shortness of breath or chest pain. OBJECTIVE: VITAL SIGNS: Within normal limits, afebrile. Alert and oriented times three. Abdomen: Fundus firm at U-2. Soft, NTTP. Incision bandage not soaked through ASSESSMENT: Status post uncomplicated PLTCS. Vitals within normal limits, afebrile, hemodynamically stable with no evidence of infection. PLAN: Discharge to home tomorrow Routine /postoperative advancement Postoperative instructions/precautions reviewed. Routine PP visit at 2 and 6 weeks in clinic. VS, I&O, 24H, Fishbone Vital Signs/I&O Vital Signs Date Time Temp Pulse Resp B/P (MAP) Pulse Ox O2 Delivery O2 Flow Rate FiO2 04/16/20 06:00 97.4 61 18 98/54 (69) 98 Room Air I&O- Last 24 Hours up to 6 AM 04/16/20 06:00 Intake Total 7899.8 ml Output Total 2520 ml Balance 5379.8 ml Laboratory Data 24H LABS Laboratory Tests 2 04/15/20 06:55: Cord Arterial Blood pH 7.282, Cord Arterial Blood PCO2 50.6, Cord Arterial Blood PO2 15.4, Cord Arterial Blood HCO3 23.4, Cord Arterial Blood Total CO2 24.9, Cord Arterial Blood Base Excess -3.9, Cord Arterial Base Excess (Standard 19.6, Cord Arterial Bld Oxygen Saturation 24.2, Cord Venous Blood pH 7.323, Cord Venous Blood PCO2 42.4, Cord Venous Blood PO2 27.9, Cord Venous Blood HCO3 21.5, Cord Venous Blood Total CO2 22.8, Cord Venous Base Excess (Actual) -4.4, Cord Venous Base Excess (Standard) 20.0, Cord Venous Blood Oxygen Saturation 62.5 04/15/20 07:51: Nucleated Red Blood Cells % (auto) 0.0, Glomerular Filtration Rate > 60.0 CBC/BMP Laboratory Tests 04/15/20 07:51 SALBADOR CARRERA DO Apr 16, 2020 06:27
[2020-04-16] MEDS: FAMOTIDINE 20 MG TAB PO SCH (08:45)
[2020-04-16] MEDS: PRENATAL VITAMINS CHEWABLE TABLET PO SCH (08:45)
[2020-04-16] MEDS: DOCUSATE SODIUM 100MG CAPSULE PO SCH ×2 (08:45→20:42)
[2020-04-16] MEDS: valACYclovir HCL 500 MG TAB PO SCH ×2 (08:45→20:42)
[2020-04-16] MEDS: ENOXAPARIN 30MG/0.3ML SYRINGE (J1650 PER 10MG) SC SCH ×2 (08:45→20:43)
[2020-04-16] MEDS: IBUPROFEN 800 MG TAB PO SCH ×2 (08:46→16:34)
[2020-04-16 09:37] LABS: HEMATOCRIT 28.2 % (36.0-47.0); HEMOGLOBIN 8.9 g/dl (12.0-15.5); MEAN CORPUSCULAR HEMOGLOBIN 26.9 pg (27.0-33.0); MEAN CORPUSCULAR HGB CONC 31.6 g/dl (32.0-36.5); MEAN CORPUSCULAR VOLUME 85.2 fl (80.0-96.0); PLATELET COUNT, AUTOMATED 237 10^3/uL (150-450); RED BLOOD COUNT 3.31 10^6/uL (4.00-5.40); WHITE BLOOD COUNT 13.1 10^3/uL (4.0-10.0)
[2020-04-17] MEDS: IBUPROFEN 800 MG TAB PO SCH ×2 (01:34→09:07)
[2020-04-17 02:00] VITALS: BP 117/70
[2020-04-17 06:00] VITALS: BP 115/61
--- NOTE | 2020-04-17 07:33 | DS.PDOC ---
Discharge Summary General Date of Admission Apr 14, 2020 at 23:06 Date of Discharge 04/17/2020 Discharge Summary PROCEDURES PERFORMED DURING STAY: Primary C/Section. ADMITTING DIAGNOSES: 1. Active Labor at Term. DISCHARGE DIAGNOSES: 1. Post-operative C/Section Day 2. COMPLICATIONS/CHIEF COMPLAINT: LABOR. HISTORY OF PRESENT ILLNESS: Magalys is a now who delivered via Primary C/Section on 04/15/2020 at 0639. She has had an uncomplicated postoperative course. Reports voiding spontaneously, passing flatus, tolerating regular diet, and ambulating without difficulty. infant without issue. Denies SOB, chest pain, difficulty breathing, headaches, visual change, nausea/vomiting, and epigastric pain. Pain well controlled with Percocet and Motrin. Reports lochia like a normal period. Declined control at this time. HOSPITAL COURSE: Uncomplicated. DISCHARGE MEDICATIONS: Please see below. ALLERGIES: Please see below. PHYSICAL EXAMINATION ON DISCHARGE: VITAL SIGNS: Please see below. GENERAL: Alert and oriented. HEENT: Normal on inspection. NECK: Supple, normal on inspection. CARDIOVASCULAR EXAMINATION: No palpitations. No SOB. RESPIRATORY EXAMINATION: Regular rate, no accessory muscle use. ABDOMINAL EXAMINATION: Soft, nontender, no distention. Fundus firm at U-2, minimal lochia. Dressing dry and intact, small areas of bleeding on dressing unchanged. EXTREMITIES: No edema. No calf tenderness. Negative clonus. SKIN: [place], dry, intact. No lesions or rashes noted. NEUROLOGICAL EXAMINATION: Grossly intact. PSYCHIATRIC EXAMINATION: Denies symptoms of depression. LABORATORY DATA: Please see below. PROGNOSIS: Good. ACTIVITY: As tolerated. DIET: Regular DISCHARGE PLAN: Home with infant. DISPOSITION: Stable. DISCHARGE INSTRUCTIONS: 1. Nothing in the vagina for 6wks. 2. Percocet and Motrin as needed for pain. 3. Reviewed reasons to call MD or return to the ER for signs/symptoms of preeclampsia, DVT/PE, depression, postoperative incision infection, endometritis, and mastitis. 4. Remove dressing on Day 5. ITEMS TO FOLLOWUP ON ON OUTPATIENT: 1. 2 week incision check. 2. 6-8 week follow up. DISCHARGE CONDITION: Stable. TIME SPENT ON DISCHARGE: Greater than 15 minutes. Vital Signs/I&Os Vital Signs Date Time Temp Pulse Resp B/P (MAP) Pulse Ox O2 Delivery O2 Flow Rate FiO2 04/17/20 06:00 97.4 58 20 115/61 (79) 99 Room Air I&O- Last 24 Hours up to 6 AM 04/17/20 06:00 Intake Total 360 ml Balance 360 ml Laboratory Data Labs 24H Laboratory Tests 2 04/16/20 08:27: Nucleated Red Blood Cells % (auto) 0.0 CBC/BMP Laboratory Tests 04/16/20 08:27 Discharge Medications Scheduled Docusate Sodium (Dok) 100 Mg Capsule, 100 MG PO BID Famotidine (Famotidine) 20 Mg Tablet, 1 TAB PO DAILY, (Reported) Ibuprofen (Ibuprofen) 800 Mg Tablet, 800 MG PO Q8H Pnv No.118/Iron Fumarate/FA ( 19 Chewable Tablet) 1 Each Tab.chew, 1 TAB PO DAILY, (Reported) Valacyclovir HCl (Valtrex) 500 Mg Tablet, 500 MG PO BID, (Reported) Scheduled PRN Oxycodone/Acetaminophen (Oxycodone-Acetaminophen 5-325) 1 Each Tablet, 1 TAB PO Q4H PRN for MILD/MODERATE PAIN (PS 1-7) Allergies Coded Allergies: Kiwi (Verified Allergy, Mild, 04/14/20) scratchy tongue MAXIMILIANO CAMPBELL CNM Apr 17, 2020 07:33
[2020-04-17] MEDS: ENOXAPARIN 30MG/0.3ML SYRINGE (J1650 PER 10MG) SC SCH (09:06)
[2020-04-17] MEDS: PRENATAL VITAMINS CHEWABLE TABLET PO SCH (09:07)
[2020-04-17] MEDS: DOCUSATE SODIUM 100MG CAPSULE PO SCH (09:07)
[2020-04-17] MEDS: FAMOTIDINE 20 MG TAB PO SCH (09:07)
[2020-04-17] MEDS: valACYclovir HCL 500 MG TAB PO SCH (09:07)
== END 2020-04-17 13:20 | disposition home or self-care (01) | DRG 540 ==
LOC: M LDO 19:17 → M LDI 23:06 → M OBS 04-15 08:47
PROVIDERS: ADMIT Obstetrics & Gynecology; ATTEND Obstetrics & Gynecology
PROC: 10D00Z1 Extraction of Products of Conception, Low, Open Approach (ICD-10-PCS; principal; 2020-04-15 06:30)
DX: O48.0 Post-term pregnancy (principal); E66.9 Obesity, unspecified; O99.214 Obesity complicating childbirth; Z37.0 Single live birth; Z3A.40 40 weeks gestation of pregnancy; O32.4XX1 Maternal care for high head at term, fetus 1; O76 Abnormality in fetal heart rate and rhythm complicating labor and delivery

== ENCOUNTER → 2020-10-17 | Outpatient (REF) | payer BC ==
[~2020-10-17] MED LIST changes: +DOK1CAP7 PO; +FAMO20TA PO; +IBUP80TA PO; +PERCOCET PO; +PRENCHW PO; +VALT500T PO; -valACYclovir HCL 500 MG TAB PO SCH
== END ==
LOC: M SFHCWAGY 17:55
PROVIDERS: ATTEND Obstetrics & Gynecology
DX: Z12.4 Encounter for screening for malignant neoplasm of cervix (principal)
CPT/HCPCS: 87624; G0123

== ENCOUNTER → 2021-04-30 | Outpatient (REF) | payer BC ==
[~2021-04-30] MED LIST changes: +DOK1CAP4 PO; -DOK1CAP7 PO
== END ==
LOC: M SFHCCLAY 07:28
PROVIDERS: ATTEND Family Medicine
DX: R53.83 Other fatigue (principal)

== ENCOUNTER → 2021-06-13 | Outpatient (REF) | payer BC ==
[2021-06-13 11:33] LABS: HEMATOCRIT 34.8 % (36.0-47.0); HEMOGLOBIN 10.7 g/dl (12.0-15.5); MEAN CORPUSCULAR HEMOGLOBIN 25.1 pg (27.0-33.0); MEAN CORPUSCULAR HGB CONC 30.7 g/dl (32.0-36.5); MEAN CORPUSCULAR VOLUME 81.5 fl (80.0-96.0); PLATELET COUNT, AUTOMATED 411 10^3/uL (150-450); RED BLOOD COUNT 4.27 10^6/uL (4.00-5.40); WHITE BLOOD COUNT 6.9 10^3/uL (4.0-10.0)
== END ==
LOC: M SFHCCLAY 07:40
PROVIDERS: ATTEND Family Medicine
DX: D50.9 Iron deficiency anemia, unspecified (principal)

== ENCOUNTER → 2021-07-30 | Outpatient (REF) | payer BC ==
[2021-07-31 11:56] LABS: BASO # 0.1 10^3/uL (0.0-0.2); BASO % 0.6 % (0.0-1.0); EOS # 0.1 10^3/uL (0.0-0.5); EOS % 1.1 % (0.0-3.0); HEMATOCRIT 35.5 % (36.0-47.0); LYMPH % 29.5 % (24.0-44.0); MEAN CORPUSCULAR HEMOGLOBIN 25.9 pg (27.0-33.0); MEAN CORPUSCULAR VOLUME 83.5 fl (80.0-96.0); MONO # 0.9 10^3/uL (0.0-0.8); MONO % 8.6 % (2.0-8.0); NEUTROPHILS # 6.1 10^3/uL (1.5-8.5); PLATELET COUNT, AUTOMATED 443 10^3/uL (150-450); RED BLOOD COUNT 4.25 10^6/uL (4.00-5.40); WHITE BLOOD COUNT 10.2 10^3/uL (4.0-10.0)
[2021-07-31 13:11] LABS: ALBUMIN 4.2 GM/DL (3.2-5.2); ALT/SGPT 33 U/L (12-78); BILIRUBIN,TOTAL 0.2 MG/DL (0.2-1.0); BLOOD UREA NITROGEN 16 MG/DL (7-18); CALCIUM LEVEL 9.7 MG/DL (8.5-10.1); CARBON DIOXIDE LEVEL 23 MEQ/L (21-32); CHLORIDE LEVEL 111 MEQ/L (98-107); FERRITIN 4 NG/ML (8-252); GLOMERULAR FILTRATION RATE > 60.0 (>60); GLUCOSE, FASTING 87 MG/DL (70-100); IRON (FE) 42 UG/DL (50-170); PERCENT SATURATION 8.7 % (13.2-45.0); POTASSIUM SERUM 5.8 MEQ/L (3.5-5.1); SODIUM LEVEL 139 MEQ/L (136-145); TOTAL IRON BINDING CAPACITY 482 UG/DL (250-450); TOTAL PROTEIN 7.5 GM/DL (6.4-8.2)
[2021-07-31 21:15] LABS: HEMOGLOBIN A1c 5.3 %
== END ==
LOC: M SFHCCLAY 15:52
PROVIDERS: ATTEND Physician Assistant
DX: R42 Dizziness and giddiness (principal)

== ENCOUNTER → 2021-08-20 | Outpatient (REF) | payer BC ==
[2021-08-20 17:02] LABS: BASO # 0.1 10^3/uL (0.0-0.2); BASO % 0.7 % (0.0-1.0); EOS # 0.1 10^3/uL (0.0-0.5); EOS % 1.5 % (0.0-3.0); HEMATOCRIT 36.2 % (36.0-47.0); HEMOGLOBIN 11.1 g/dl (12.0-15.5); LYMPH # 2.6 10^3/uL (1.5-5.0); LYMPH % 34.1 % (24.0-44.0); MEAN CORPUSCULAR HEMOGLOBIN 25.3 pg (27.0-33.0); MEAN CORPUSCULAR HGB CONC 30.7 g/dl (32.0-36.5); MEAN CORPUSCULAR VOLUME 82.5 fl (80.0-96.0); MONO # 0.5 10^3/uL (0.0-0.8); MONO % 7.2 % (2.0-8.0); NEUTROPHILS # 4.2 10^3/uL (1.5-8.5); NEUTROPHILS % 56.4 % (36.0-66.0); PLATELET COUNT, AUTOMATED 414 10^3/uL (150-450); RED BLOOD COUNT 4.39 10^6/uL (4.00-5.40); WHITE BLOOD COUNT 7.5 10^3/uL (4.0-10.0)
[2021-08-20 17:14] LABS: BLOOD UREA NITROGEN 8 MG/DL (7-18); CALCIUM LEVEL 9.5 MG/DL (8.5-10.1); CARBON DIOXIDE LEVEL 25 MEQ/L (21-32); CHLORIDE LEVEL 110 MEQ/L (98-107); CREATININE FOR GFR 0.88 MG/DL (0.55-1.30); GLOMERULAR FILTRATION RATE > 60.0 (>60); GLUCOSE, FASTING 86 MG/DL (70-100); POTASSIUM SERUM 4.9 MEQ/L (3.5-5.1); SODIUM LEVEL 135 MEQ/L (136-145)
== END ==
LOC: M SFHCCLAY 10:01
PROVIDERS: ATTEND Family Medicine
DX: E16.2 Hypoglycemia, unspecified (principal); R53.83 Other fatigue

== ENCOUNTER → 2021-11-28 | Outpatient (REF) | payer BC | LOC: M LABDRAWC 11:32 | PROVIDERS: ATTEND Internal Medicine Endocrinology, Diabetes & Metabolism | DX: E04.2 Nontoxic multinodular goiter (principal) ==

== ENCOUNTER → 2023-03-05 | Outpatient (CLI) | payer OTHER ==
[2023-03-05 11:54] LABS: BASO % 0.6 % (0.0-1.0); EOS # 0.2 10^3/uL (0.0-0.5); EOS % 2.3 % (0.0-3.0); HEMATOCRIT 32.7 % (36.0-47.0); HEMOGLOBIN 10.1 g/dl (12.0-15.5); LYMPH # 2.1 10^3/uL (1.5-5.0); LYMPH % 28.4 % (24.0-44.0); MEAN CORPUSCULAR HEMOGLOBIN 24.9 pg (27.0-33.0); MEAN CORPUSCULAR HGB CONC 30.9 g/dl (32.0-36.5); MEAN CORPUSCULAR VOLUME 80.7 fl (80.0-96.0); MONO # 0.6 10^3/uL (0.0-0.8); MONO % 8.1 % (2.0-8.0); NEUTROPHILS # 4.4 10^3/uL (1.5-8.5); NEUTROPHILS % 60.3 % (36.0-66.0); PLATELET COUNT, AUTOMATED 442 10^3/uL (150-450); RED BLOOD COUNT 4.05 10^6/uL (4.00-5.40); WHITE BLOOD COUNT 7.3 10^3/uL (4.0-10.0)
[2023-03-05 12:06] LABS: ALBUMIN 3.8 G/DL (3.2-5.2); ALKALINE PHOSPHATASE 58 U/L (46-116); ALT/SGPT 12 U/L (7.0-40); AST/SGOT < 8 U/L (<34); BILIRUBIN,TOTAL 0.3 MG/DL (0.3-1.2); BLOOD UREA NITROGEN 12 MG/DL (9-23); CALCIUM LEVEL 9.2 MG/DL (8.5-10.1); CARBON DIOXIDE LEVEL 26 MMOL/L (20-31); CHLORIDE LEVEL 108 MMOL/L (98-107); CHOLESTEROL LEVEL 121 MG/DL (<200); CHOLESTEROL RISK RATIO 1.97 (<5); CREATININE FOR GFR 0.72 MG/DL (0.55-1.30); ESTRADIOL 57.2 PG/ML; FOLLICLE STIMULATING HORMONE 4.7 mIU/ML; GLOMERULAR FILTRATION RATE > 60.0 (>60); GLUCOSE, FASTING 86 MG/DL (60-100); HDL CHOLESTEROL 61.3 MG/DL (>40); LDL CHOLESTEROL 50.9 MG/DL (<100); LUTEINIZING HORMONE 13.7 mIU/ML; NON-HDL-C 59.7 MG/DL; POTASSIUM SERUM 4.7 MMOL/L (3.5-5.1); PROLACTIN 6.95 NG/ML; SODIUM LEVEL 141 MMOL/L (136-145); TESTOSTERONE 24 NG/DL (14-76); TOTAL PROTEIN 6.6 G/DL (5.7-8.2); TRIGLYCERIDES LEVEL 44 MG/DL (<150)
== END ==
LOC: M PLALAB 07:12
PROVIDERS: ATTEND Registered Nurse
DX: Z00.00 Encounter for general adult medical examination without abnormal findings (principal); L68.0 Hirsutism

== ENCOUNTER → 2023-03-13 | Outpatient (CLI) | payer OTHER ==
[2023-03-13 15:22] LABS: ALKALINE PHOSPHATASE 60 U/L (46-116); ALT/SGPT 13 U/L (7.0-40); AST/SGOT < 8 U/L (<34); BILIRUBIN,TOTAL 0.3 MG/DL (0.3-1.2); BLOOD UREA NITROGEN 12 MG/DL (9-23); CALCIUM LEVEL 9.4 MG/DL (8.5-10.1); CARBON DIOXIDE LEVEL 24 MMOL/L (20-31); CHLORIDE LEVEL 106 MMOL/L (98-107); CHOLESTEROL LEVEL 118 MG/DL (<200); CHOLESTEROL RISK RATIO 2.12 (<5); CREATININE FOR GFR 0.67 MG/DL (0.55-1.30); GLOMERULAR FILTRATION RATE > 60.0 (>60); GLUCOSE, FASTING 77 MG/DL (60-100); HDL CHOLESTEROL 55.6 MG/DL (>40); LDL CHOLESTEROL 53.6 MG/DL (<100); NON-HDL-C 62.4 MG/DL; POTASSIUM SERUM 4.8 MMOL/L (3.5-5.1); SODIUM LEVEL 138 MMOL/L (136-145); THYROID STIMULATING HORMONE 1.069 uIU/ML (0.55-4.78); TRIGLYCERIDES LEVEL 44 MG/DL (<150)
[2023-03-13 15:29] LABS: HEMOGLOBIN A1c 5.1 % (4.0-6.0)
== END ==
LOC: M PLALAB 11:30
PROVIDERS: ATTEND Nurse Practitioner Family
DX: E04.2 Nontoxic multinodular goiter (principal); E16.2 Hypoglycemia, unspecified

== ENCOUNTER → 2023-07-22 | Outpatient (CLI) | payer OTHER ==
[2023-07-22 15:47] LABS: BASO # 0.1 10^3/uL (0.0-0.2); BASO % 0.6 % (0.0-1.0); EOS # 0.2 10^3/uL (0.0-0.5); HEMATOCRIT 32.5 % (36.0-47.0); HEMOGLOBIN 9.8 g/dl (12.0-15.5); LYMPH # 2.8 10^3/uL (1.5-5.0); LYMPH % 29.7 % (24.0-44.0); MEAN CORPUSCULAR HGB CONC 30.2 g/dl (32.0-36.5); MEAN CORPUSCULAR VOLUME 76.1 fl (80.0-96.0); MONO # 0.7 10^3/uL (0.0-0.8); MONO % 6.9 % (2.0-8.0); NEUTROPHILS # 5.7 10^3/uL (1.5-8.5); NEUTROPHILS % 60.6 % (36.0-66.0); PLATELET COUNT, AUTOMATED 540 10^3/uL (150-450); RED BLOOD COUNT 4.27 10^6/uL (4.00-5.40); WHITE BLOOD COUNT 9.4 10^3/uL (4.0-10.0)
[2023-07-22 16:20] LABS: FERRITIN 1.4 NG/ML (7.3-270.7); PERCENT SATURATION 2.4 % (13.2-45.0)
[2023-07-22 16:21] LABS: FOLATE 18.2 NG/ML (>5.4)
== END ==
LOC: M PLALAB 13:16
PROVIDERS: ATTEND Registered Nurse
DX: D64.9 Anemia, unspecified (principal)

== ENCOUNTER → 2023-10-12 | Outpatient (CLI) | payer OTHER | LOC: M SOG 14:53 | PROVIDERS: ATTEND Physician Assistant | DX: M79.642 Pain in left hand (principal) ==

== ENCOUNTER → 2023-11-11 | Outpatient (CLI) | payer OTHER | LOC: M SOG 07:59 | PROVIDERS: ATTEND Physician Assistant | DX: M79.645 Pain in left finger(s) (principal); Z53.9 Procedure and treatment not carried out, unspecified reason ==

== ENCOUNTER → 2023-11-18 | Outpatient (CLI) | payer OTHER | LOC: M SOG 07:55 | PROVIDERS: ATTEND Physician Assistant | DX: M79.645 Pain in left finger(s) (principal) ==

== ENCOUNTER → 2024-02-04 | Outpatient (CLI) | payer OTHER ==
[2024-02-04 15:10] LABS: BASO % 0.5 % (0.0-1.0); EOS # 0.2 10^3/uL (0.0-0.5); EOS % 2.2 % (0.0-3.0); HEMATOCRIT 37.2 % (36.0-47.0); HEMOGLOBIN 11.3 g/dl (12.0-15.5); LYMPH # 2.7 10^3/uL (1.5-5.0); MEAN CORPUSCULAR HEMOGLOBIN 25.6 pg (27.0-33.0); MEAN CORPUSCULAR HGB CONC 30.4 g/dl (32.0-36.5); MEAN CORPUSCULAR VOLUME 84.2 fl (80.0-96.0); MONO # 0.8 10^3/uL (0.0-0.8); MONO % 9.1 % (2.0-8.0); NEUTROPHILS # 4.9 10^3/uL (1.5-8.5); PLATELET COUNT, AUTOMATED 435 10^3/uL (150-450); RED BLOOD COUNT 4.42 10^6/uL (4.00-5.40); WHITE BLOOD COUNT 8.6 10^3/uL (4.0-10.0)
[2024-02-04 15:34] LABS: ALBUMIN 4.1 G/DL (3.2-5.2); ALKALINE PHOSPHATASE 63 U/L (35-104); ALT/SGPT 16 U/L (7.0-40); AST/SGOT < 8 U/L (<34); BILIRUBIN,TOTAL 0.3 MG/DL (0.3-1.2); BLOOD UREA NITROGEN 13 MG/DL (9-23); CALCIUM LEVEL 10.2 MG/DL (8.5-10.1); CARBON DIOXIDE LEVEL 25 MMOL/L (20-31); CHLORIDE LEVEL 109 MMOL/L (98-107); CREATININE FOR GFR 0.77 MG/DL (0.55-1.30); GLOMERULAR FILTRATION RATE > 60.0 (>60); GLUCOSE, FASTING 79 MG/DL (60-100); IRON (FE) 18 UG/DL (50-170); PERCENT SATURATION 4.1 % (13.2-45.0); POTASSIUM SERUM 5.3 MMOL/L (3.5-5.1); SODIUM LEVEL 140 MMOL/L (136-145); TOTAL IRON BINDING CAPACITY 439 UG/DL (250-425); TOTAL PROTEIN 7.5 G/DL (5.7-8.2)
[2024-02-04 15:36] LABS: FERRITIN 3.6 NG/ML (7.3-270.7)
== END ==
LOC: M PLALAB 13:55
PROVIDERS: ATTEND Nurse Practitioner Family
DX: D50.9 Iron deficiency anemia, unspecified (principal)

== ENCOUNTER → 2024-10-12 | Outpatient (CLI) | payer OTHER, SELFPAY ==
[2024-10-12 17:25] LABS: BASO # 0.0 10^3/uL (0.0-0.2); BASO % 0.3 % (0.0-1.0); EOS # 0.2 10^3/uL (0.0-0.5); EOS % 1.8 % (0.0-3.0); LYMPH # 2.6 10^3/uL (1.5-5.0); LYMPH % 29.8 % (24.0-44.0); MONO # 0.6 10^3/uL (0.0-0.8); MONO % 6.7 % (2.0-8.0); NEUTROPHILS # 5.4 10^3/uL (1.5-8.5); NEUTROPHILS % 61.1 % (36.0-66.0); PLATELET COUNT, AUTOMATED 452 10^3/uL (150-450)
[2024-10-12 17:58] LABS: IRON (FE) 18 UG/DL (50-170)
[2024-10-12 17:59] LABS: ALT/SGPT 15 U/L (7.0-40); AST/SGOT 13 U/L (<34); CALCIUM LEVEL 9.5 MG/DL (8.5-10.1); CARBON DIOXIDE LEVEL 25 MMOL/L (20-31); CHLORIDE LEVEL 104 MMOL/L (98-107); CREATININE FOR GFR 0.77 MG/DL (0.55-1.30); GLOMERULAR FILTRATION RATE > 90.0 (>60); PERCENT SATURATION 4.0 % (13.2-45.0); POTASSIUM SERUM 4.9 MMOL/L (3.5-5.1); SODIUM LEVEL 140 MMOL/L (136-145)
[2024-10-12 18:00] LABS: VITAMIN B12 LEVEL 637 PG/ML (211-911)
== END ==
LOC: M PLALAB 13:14
PROVIDERS: ATTEND Registered Nurse
DX: D50.9 Iron deficiency anemia, unspecified (principal)

== ENCOUNTER → 2024-10-24 | Outpatient (REF) | payer OTHER, BC ==
[2024-10-26 15:43] LABS: HPV APTIMA Not Detected (Not Detected)
== END ==
LOC: M SFHCWAGY 15:28
PROVIDERS: ATTEND Nurse Practitioner Family
DX: Z12.4 Encounter for screening for malignant neoplasm of cervix (principal); R87.612 Low grade squamous intraepithelial lesion on cytologic smear of cervix (LGSIL)
CPT/HCPCS: 87624; G0123